=== PATIENT | male | born 1960 | race Caucasian/White ===

== ENCOUNTER 2017-12-02 07:30 | Day surgery (SDC) | payer OTHER ==
[2017-12-01 14:29] LABS: BASOPHILS 0.5 % (0-2); EOSINOPHILS 4.5 % (0-7); HEMATOCRIT 39.4 % (42.0-54.0); HEMOGLOBIN 13.1 g/dL (13.5-17.5); IMMATURE GRANULOCYTES 0.5 % (0-5); LYMPHOCYTES 34.3 % (15-50); MCH 31.5 pg (26.0-34.0); MCHC 33.2 g/dL (31.0-37.0); MCV 94.7 fL (80.0-100.0); MEAN PLATELET VOLUME 9.7 fL (7.4-10.4); MONOCYTES 7.1 % (2-11); NEUTROPHILS 53.1 % (40-80); PLATELET COUNT 139 10x3/uL (130-400); RBC 4.16 10x6/uL (4.20-6.10); RDW 15.1 % (11.5-14.5); WBC 9.4 10x3/uL (4.8-10.8)
[2017-12-01 14:41] LABS: APTT 29.9 SECONDS (22.8-39.4); INR 1.46 (0.85-1.17); PROTIME 17.3 SECONDS (11.6-15.0)
[2017-12-01 15:02] LABS: ANION GAP 15.6 mmol/L (8-16); CALCIUM 7.8 mg/dL (8.5-10.1); CARBON DIOXIDE 25.4 mmol/L (21.0-32.0); CREATININE - SERUM 5.6 mg/dL (0.6-1.3)
[~2017-12-02] VITALS: Ht 193 cm; Wt 171.9 kg
--- NOTE | ~2017-12-02 | OP ---
PATIENT NAME: CAYDEN RILEY MEDICAL RECORD: [id number] :60 LOCATION:D.[facility] ADMISSION DATE: SURGEON: AZUL WORLEY MD DATE OF OPERATION: 12/02/2017 REFERRING PHYSICIAN: Livan Ramos MD PREOPERATIVE DIAGNOSIS: Chronic kidney disease V. POSTOPERATIVE DIAGNOSIS: Chronic kidney disease V. OPERATION PERFORMED: Creation of a left distal brachial artery to basilic vein John type AV fistula with plans for a delayed translocation procedure. SURGEON: Azul Worley MD ANESTHESIA: Regional nerve block plus general endotracheal anesthesia per REAL ESTATE TRANSACTION MANAGER. PREOPERATIVE NOTE: Mr. Riley is a 56-year-old white male with chronic kidney disease, who is anticipated to require dialysis fairly soon. Dr. Ramos referred him to me for access. He has a good basilic vein in his left arm and I am anticipating a brachiobasilic AV fistula. Under regional block as well as general anesthesia, the patient was placed in supine position and prepped and draped in sterile manner. The REAL ESTATE TRANSACTION MANAGER administered general anesthesia in addition to the regional block because of the patient's obesity and also uncertainty as to the efficacy of the block. I then applied nitroglycerin ointment to the arm and forearm, and applied a Dinosaur drain as a proximal venous tourniquet. I examined him then with ultrasound and confirmed that the basilic vein was a very attractive vessel to use for this conduit. I then made an incision directly over it in the proximal forearm and exposed the vein and exposed the distal brachial artery at its trifurcation. The vessels were controlled with atraumatic vascular clamps and Silastic loops. The vein was ligated and divided distally and its deep communicating branch also was ligated and divided. Ligatures of 3-0 Vicryl and a few small Hemoclips were utilized. The vein was beveled and prepared for anastomosis and flushed with heparinized saline. The artery was occluded with the Silastic loops and the very distal brachial artery just above the trifurcation was opened for a distance of about 7-mm and the artery was flushed proximally and distally with heparinized saline. The end of vein was then anastomosed to side of artery with running 7-0 Prolene, and when completed the sutures and clamps were released and excellent flow immediately was established within the fistula, and after a period of observation with some dry gauze and the use of fibrillar hemostatic material, the suture line was hemostatic. The patient was examined at that point with Doppler and it was very difficult to hear flow in the radial artery or ulnar artery at the wrist. At this time, his blood pressure was 110 or less, systolic, and I, at that point, asked the can sealer to go ahead and awaken and extubate the patient, which was done and his pressure did come up as expected and he did develop a pulsatile Doppler flow in the radial artery at the wrist with and without occlusion of the fistula. Also, noted was that he maintained very good rapid capillary refill throughout the procedure in the hand. The wound was closed without the use of a drain approximating subcutaneous tissues with interrupted 3-0 Vicryl and skin was closed with running intracuticular 4-0 Monocryl and Dermabond glue. The OPERATIVE REPORT [id number] CAYDEN RILEY incision was dressed with Maxorb Ag, Tegaderm, and Cavilon skin prep and the patient was then taken to the recovery room. Blood loss was about 10 cc and certainly was unreplaced. All sponges, instruments and needles were accounted for. No drain was used and no surgical specimen was submitted for histopathology. PLAN: The patient will go home today and resume his usual diet and home medications including his warfarin. He is to resume the warfarin at his usual daily dose. He will come back to see me in my office in 2 weeks, and at that time I plan to remove his operative dressing. He can leave the dressing intact until that time and shower and wash over with soap and water as needed. Should the dressing become wet or dirty or bloody or if it is draining fluid from under the plastic, certainly it can be removed by the patient and family. The incision should at that time be cleansed gently with soap and water and then redressed with clean, dry gauze. He is given a prescription for [place] 14 tablets 5 mg/325 mg, he is to take 1 or 2 p.o. every 4 hours p.r.n. pain, which is more severe than might be handled by a plain Tylenol. I will plan for the patient to be returned to the operating room in the next 2 to 3 weeks for translocation of the basilic vein. TRANSINT:[id number] Voice Confirmation ID: [id number] DOCUMENT ID: [id number] AZUL WORLEY MD at 1410 CC: LIVAN RAMOS [id number] DICTATION DATE: 12/02/17 1152 PHYSICAL THERAPY RESIDENT: 12/02/17 2242 [facility] 12/02/17 [place] [id number] [place] [id number]
[~2017-12-02 07:30] MED LIST: CELEXA40 MG PO; CIPRO500 MG PO; COUMADIN5 MG PO; METOPROLOL TAR100 M1 PO
[2017-12-02 08:04] VITALS: Ht 193 cm; Wt 171.9 kg
[2017-12-02] MEDS ORDERED: HYDROCODON-ACE1 EAC7 PO (11:32)
== END 2017-12-02 13:20 | disposition home or self-care (01) ==
LOC: D.OPS 07:30
PROVIDERS: Surgery
DX: I13.2 Hypertensive heart and chronic kidney disease with heart failure and with stage 5 chronic kidney disease, or end stage renal disease (principal); N18.6 End stage renal disease; I50.9 Heart failure, unspecified; I48.91 Unspecified atrial fibrillation; G47.30 Sleep apnea, unspecified; E66.01 Morbid (severe) obesity due to excess calories; Z68.42 Body mass index [BMI] 45.0-49.9, adult; Z01.812 Encounter for preprocedural laboratory examination

== ENCOUNTER 2018-01-06 06:00 | Day surgery (SDC) | payer OTHER ==
[2018-01-05 15:37] LABS: BASOPHILS 0.4 % (0-2); EOSINOPHILS 2.1 % (0-7); HEMATOCRIT 37.1 % (42.0-54.0); IMMATURE GRANULOCYTES 0.4 % (0-5); LYMPHOCYTES 32.4 % (15-50); MCH 31.7 pg (26.0-34.0); MCHC 32.3 g/dL (31.0-37.0); MCV 97.9 fL (80.0-100.0); MEAN PLATELET VOLUME 10.5 fL (7.4-10.4); MONOCYTES 5.3 % (2-11); NEUTROPHILS 59.4 % (40-80); PLATELET COUNT 138 10x3/uL (130-400); RBC 3.79 10x6/uL (4.20-6.10); RDW 16.8 % (11.5-14.5); WBC 9.7 10x3/uL (4.8-10.8)
[2018-01-05 16:07] LABS: ANION GAP 16.6 mmol/L (8-16); CARBON DIOXIDE 22.1 mmol/L (21.0-32.0); CREATININE - SERUM 5.4 mg/dL (0.6-1.3); POTASSIUM - SERUM 4.7 mmol/L (3.5-5.1)
[2018-01-05 16:19] LABS: APTT 29.1 SECONDS (22.8-39.4); INR 1.45 (0.85-1.17); PROTIME 17.1 SECONDS (11.6-15.0)
[~2018-01-06] VITALS: Ht 193 cm; Wt 171.9 kg
--- NOTE | ~2018-01-06 | OP ---
PATIENT NAME: CAYDEN RILEY MEDICAL RECORD: [id number] :60 LOCATION:[facility] ADMISSION DATE: SURGEON: AZUL WORLEY MD DATE OF OPERATION: 01/06/2018 PREOPERATIVE DIAGNOSIS: Chronic kidney disease V. REFERRING PHYSICIAN: Livan Calrisle MD OPERATION PERFORMED: Second stage construction of a left brachial artery to translocated basilic vein AV fistula. SURGEON: Azul Worley MD ANESTHESIA: General with LMA per DINING ROOM TABLES SET UP ATTENDANT. PREOPERATIVE NOTE: Mr. Riley is a very nice 57-year-old white male patient with worsening renal disease and is thought to soon require dialysis. He had a John type fistula created between the brachial artery basilic vein several weeks ago and as planned. Then, he has returned to the operating room now to construct a translocated basilic fistula. DESCRIPTION OF PROCEDURE: Under general anesthesia, the patient was prepped and draped in sterile manner. He was examined first with Duplex ultrasound and I found the basilic vein to be quite large and there were very few other arterialized veins or tributaries. I made an incision on the medial aspect of the arm from the axilla to the previous incision in the antecubital space. I exposed the basilic vein and dissected it and freed it from the surrounding tissues and divided tributaries between Vicryl ties and clips all the way from the arterial anastomosis at the antecubital level to the axilla. The vein was occluded proximally with a vascular clamp and the vein distally just proximal to the arterial anastomosis was occluded with a vascular clamp. The vein was marked with a surgical marker to help with orientation of the graft and the vein was divided and bevelled. It was then flushed with heparinized saline. I made a tunnel on the anterior aspect of the arm with an Impra tunneler and used a Hank tunneler. Then, the second part of this maneuver and pulled the vein through a tunnel and back to the antecubital space without twisting. The vein was then anastomosed again end-to-end. This was done with running 7-0 Prolene and when completed the occluding loops and clamps were released and excellent flow was established in the fistula. The anastomosis was not stenosed or pursestringed, and there was no bleeding. The wound was irrigated with Ancef and gentamycin and the vein was treated intermittently with papaverine. A 0.25% Marcaine without epinephrine was infiltrated into the subcutaneous tissues. The patient had had an organized seroma or lymphocele in the antecubital space. When that was opened, it was drained of about 10 cc of clear fluid. When I drained this area and the distal half of the upper arm incision with a 10-mm flat fluted closed suction drain brought out through a stab incision in the forearm. The arm wound was closed with interrupted inverted 3-0 Vicryl and running intracuticular 4-0 Monocryl and Dermabond glue. It was dressed with Maxorb Ag, Tegaderm, and Cavilon skin prep. The drain was dressed with chlorhexidine-containing Biopatch and further sterile dry dressings over that. The patient was then awakened and taken to the recovery room in good condition with good fistula function. Blood loss was about 5 cc, none replaced. All sponges, instruments and needles OPERATIVE REPORT [id number] CAYDEN RILEY were accounted for. No drain. Probably one drain was used as I described. No surgical specimen was submitted for histopathology. PLAN: Mr. Riley will go home today and I will plan to see him back in my office later next week or early the following week. Home Health referral was made to help with wound care and THAD drain care in particular. He will continue all the same medications. He already has pain medication at home and needs no more. He will resume his Coumadin at the same daily dose beginning on Tuesday. TRANSINT:[id number] Voice Confirmation ID: [id number] DOCUMENT ID: [id number] AZUL WORLEY MD at 1451 CC: [id number] DICTATION DATE: 01/06/18 1132 COMMUNITY SPECIALIST: 01/06/18 1210 [facility] 01/06/18 [place] [id number] [place] [id number]
[~2018-01-06 06:00] MED LIST changes: +HYDROCODON-ACE1 EAC7 PO
[2018-01-06 06:39] VITALS: Ht 193 cm; Wt 171.9 kg
== END 2018-01-06 13:30 | disposition home or self-care (01) ==
LOC: D.OPS 06:00
PROVIDERS: Surgery
DX: I13.2 Hypertensive heart and chronic kidney disease with heart failure and with stage 5 chronic kidney disease, or end stage renal disease (principal); N18.5 Chronic kidney disease, stage 5; I50.9 Heart failure, unspecified; I48.91 Unspecified atrial fibrillation; Z01.812 Encounter for preprocedural laboratory examination

== ENCOUNTER 2018-02-03 06:30 | Observation (INO) | payer OTHER ==
[~2018-02-03] VITALS: Ht 1818.6 cm; Wt 172.7 kg
--- NOTE | ~2018-02-03 | OP ---
PATIENT NAME: CAYDEN RILEY MEDICAL RECORD: [id number] :60 LOCATION:D.M2 D.2127 ADMISSION DATE:02/05/18 SURGEON: AZUL WORLEY MD DATE OF OPERATION: 02/03/2018 REFERRED BY: Livan Carlisle MD OPERATION PERFORMED: Laparoscopic implantation of a peritoneal dialysis catheter with subcutaneous extension exiting in the right upper quadrant and a laparoscopic mesh repair of recurrent umbilical ventral hernia. Repair performed with a Ventralight ST 4.5 inch diameter circular mesh with Echo PS positioning system and Bard AbsorbaTack fixation, and also the third part of the operation was ray amputation of the 4th left toe at the metatarsophalangeal joint. SURGEON: Azul Worley MD ANESTHESIA: General endotracheal per SCIENTIFIC RESEARCH ASSOCIATE. PREOPERATIVE NOTE: Mr. Riley is a 57-year-old white male patient from [place]. He is morbidly obese with a gigantic abdomen and has worsening symptoms of onset of uremia. He has known chronic kidney disease and he has had a fistula constructed in his left arm, but it has not yet been utilized for dialysis. He does not have a dialysis catheter at this point. Dr. Carlisle has referred him back to me for laparoscopic implantation of a PD catheter. Also, the patient has a chronically infected left fourth toe, thought to have osteomyelitis by x-ray findings and that is to be amputated today as well. DESCRIPTION OF PROCEDURE: Under general endotracheal anesthesia, the patient was placed on the operating table in supine position, and the abdomen and the left foot was prepped and draped in a sterile manner. On physical examination, the patient has extensive hyperpigmentation and scarring in the umbilicus from surgical repair of a large umbilical hernia done last year. By history, at least no prosthetic mesh was used and that repair. On physical examination; however, I do not, at least at this time detect a recurrent hernia. I entered the left upper quadrant of the abdomen with a 5-mm diameter port and later exchanged it for 10-mm port. The operation was done throughout with a 5-mm diameter laparoscope. Both the 0 degree and 30 degree angled scopes were used. I chose to use some Merit peritoneal dialysis catheter system. I used external landmarks to estimate a 0.4 incision on the abdominal wall to the right of the midline. In the right lower quadrant, I made an incision and carried that down to the anterior rectus sheath and then inserted a needle and guidewire through the rectus complex into the abdomen. I tried to keep the needle and guidewire in a retroperitoneal tunnel as far as possible in order to help direct the catheter into the pelvis. A 16-Irish introducer was placed and then through that I inserted the business end of the Merit dialysis coil catheter. The single Dacron felt cuff was placed through the rectus fascia into the body of the rectus muscle and a pursestring suture of 0 Vicryl was placed in the anterior rectus sheath to hold it there. I made another incision to the right of the midline above the umbilicus and made a subcutaneous tunnel just anterior to the rectus connecting the 2 incisions. I made measurements and then cut the catheters and joined them together with a titanium connector and pulled them through the subcutaneous tunnel and got a perfect fit. The catheter was finally placed through a subcutaneous tunnel to the proposed exit site in the right OPERATIVE REPORT [id number] CAYDEN RILEY [facility]. This left the second Dacron felt cuff in the subcutaneous tissues about 2 cm or 3 cm from the exit site. The catheter was accessed and flushed, noted to flush easily. About 300 mL of saline was flushed into the abdomen through it and then aspirated, and the catheter functioned quite well. Visually it was resting nicely in the pelvis. The patient did have a small recurrent umbilical incisional hernia about the size of a quarter with omentum adherent to its undersurface. These adhesions were taken down bluntly and fairly easily. Having placed an additional 5-mm port in the left lower quadrant. Later during the procedure, I placed 2 additional ports on the right side. I inserted a 4.5 inch diameter circular Ventralight ST mesh with Echo PS positioning system. This was inserted through the 10-mm sheath in the left upper quadrant into the abdomen. The plastic tube was picked up with a Robert-Alexander suture passer, which was introduced through the anterior abdominal wall through the old hernia repair and pulled up against the anterior abdominal wall. The patch was then held in place with AbsorbaTack and the balloon mechanism was removed. The abdomen was irrigated with saline and the hernia repair thought to be satisfactory and catheter placement and function is satisfactory. The ports were removed after allowing the insufflated carbon dioxide to escape. The wounds were irrigated with saline and closed with interrupted 3-0 Vicryl and running intracuticular 4-0 Monocryl. A sterile dressing with chlorhexidine patch was placed over the dialysis catheter coiled in the right upper quadrant. I next made a tennis racquet shaped incision around the base of the left 4th toe and carried the incision down to the bone of the proximal phalanx. This was divided with a bone cutter and a rongeur was then used to remove the rest of the proximal phalanx, exposing the articular surface of the metatarsal bone. Bleeding was satisfactory from the wound. The wound was treated with electrocautery and infiltrated with 0.25% Marcaine without epinephrine and the soft tissues approximated with interrupted 4-0 Prolene sutures. Sterile dressings were applied to the foot and the abdominal incision sealed with glue were dressed with Maxorb Ag, Tegaderm, and Cavilon skin prep. The patient was then awakened and taken to the recovery room in stable condition. Blood loss during the operation was no more than 10 cc. All sponges, instruments and needles were accounted for. No drain was used. Surgical specimen consisted of the amputated left 4th toe. TRANSINT:[id number] Voice Confirmation ID: [id number] DOCUMENT ID: [id number] AZUL WORLEY MD at 1054 CC: [id number] DICTATION DATE: 02/03/18 1345 LICENSED DIRECT ENTRY MIDWIFE: 02/03/18 1443 [facility] 02/05/18 [place] [id number] [place] [address]
[2018-02-03 06:50] LABS: BASOPHILS 0.4 % (0-2); EOSINOPHILS 2.4 % (0-7); HEMATOCRIT 37.2 % (42.0-54.0); HEMOGLOBIN 11.6 g/dL (13.5-17.5); IMMATURE GRANULOCYTES 0.3 % (0-5); LYMPHOCYTES 36.2 % (15-50); MCH 30.8 pg (26.0-34.0); MCHC 31.2 g/dL (31.0-37.0); MCV 98.7 fL (80.0-100.0); MEAN PLATELET VOLUME 9.6 fL (7.4-10.4); MONOCYTES 7.4 % (2-11); NEUTROPHILS 53.3 % (40-80); PLATELET COUNT 153 10x3/uL (130-400); RBC 3.77 10x6/uL (4.20-6.10); RDW 16.1 % (11.5-14.5); WBC 7.5 10x3/uL (4.8-10.8)
[2018-02-03 06:55] LABS: ANION GAP 15.4 mmol/L (8-16); CALCIUM 7.8 mg/dL (8.5-10.1); CARBON DIOXIDE 24.2 mmol/L (21.0-32.0); CREATININE - SERUM 5.8 mg/dL (0.6-1.3); POTASSIUM - SERUM 4.6 mmol/L (3.5-5.1)
[2018-02-03 07:02] LABS: APTT 30.7 SECONDS (22.8-39.4); INR 1.48 (0.85-1.17); PROTIME 17.4 SECONDS (11.6-15.0)
[2018-02-03 07:57] VITALS: BP 108/64
[2018-02-03] MEDS ORDERED: AMOXICILLIN500 M1 PO (07:57)
[2018-02-03] MEDS ORDERED: LASIX40 MG PO (08:00)
[2018-02-03 14:31] VITALS: BP 123/76
[2018-02-03 16:04] VITALS: BP 125/78
[2018-02-03 17:21] LABS: BASOPHILS 0.3 % (0-2); EOSINOPHILS 0.7 % (0-7); HEMATOCRIT 35.5 % (42.0-54.0); HEMOGLOBIN 11.1 g/dL (13.5-17.5); IMMATURE GRANULOCYTES 0.4 % (0-5); LYMPHOCYTES 19.4 % (15-50); MCH 31.1 pg (26.0-34.0); MCHC 31.3 g/dL (31.0-37.0); MCV 99.4 fL (80.0-100.0); MEAN PLATELET VOLUME 10.4 fL (7.4-10.4); MONOCYTES 5.3 % (2-11); NEUTROPHILS 73.9 % (40-80); PLATELET COUNT 143 10x3/uL (130-400); RBC 3.57 10x6/uL (4.20-6.10); WBC 7.4 10x3/uL (4.8-10.8)
[2018-02-03 17:41] LABS: ALBUMIN 3.5 g/dL (3.4-5.0); ANION GAP 14.3 mmol/L (8-16); BILIRUBIN - TOTAL 0.69 mg/dL (0.2-1.3); CALCIUM 7.3 mg/dL (8.5-10.1); CARBON DIOXIDE 24.7 mmol/L (21.0-32.0); CREATININE - SERUM 5.4 mg/dL (0.6-1.3); PROTEIN - SERUM 6.9 g/dL (6.4-8.2)
[2018-02-03 17:52] LABS: APTT 29.5 SECONDS (22.8-39.4); INR 1.53 (0.85-1.17); PROTIME 17.8 SECONDS (11.6-15.0)
[2018-02-03 21:56] VITALS: BP 135/70
[2018-02-03 22:42] VITALS: BP 123/76
[2018-02-04 00:45] VITALS: BP 141/97
[2018-02-04 04:16] VITALS: BP 137/70
[2018-02-04 05:00] LABS: BASOPHILS 0.1 % (0-2); EOSINOPHILS 1.2 % (0-7); HEMATOCRIT 34.3 % (42.0-54.0); HEMOGLOBIN 10.3 g/dL (13.5-17.5); IMMATURE GRANULOCYTES 0.3 % (0-5); LYMPHOCYTES 25.8 % (15-50); MCH 30.3 pg (26.0-34.0); MCV 100.9 fL (80.0-100.0); MEAN PLATELET VOLUME 10.1 fL (7.4-10.4); MONOCYTES 9.5 % (2-11); NEUTROPHILS 63.1 % (40-80); PLATELET COUNT 135 10x3/uL (130-400); RDW 16.3 % (11.5-14.5); WBC 7.3 10x3/uL (4.8-10.8)
[2018-02-04 05:38] LABS: ANION GAP 15.5 mmol/L (8-16); CALCIUM 7.8 mg/dL (8.5-10.1); CARBON DIOXIDE 22.3 mmol/L (21.0-32.0); CREATININE - SERUM 5.6 mg/dL (0.6-1.3); MAGNESIUM - SERUM 1.9 mg/dL (1.8-2.4); PHOSPHOROUS 6.5 mg/dL (2.5-4.9); POTASSIUM - SERUM 4.8 mmol/L (3.5-5.1)
[2018-02-04 07:47] VITALS: BP 138/80
[2018-02-04 11:32] VITALS: BP 128/62
[2018-02-04 12:46] VITALS: Ht 1818.6 cm; Wt 172.7 kg
[2018-02-04 15:34] VITALS: BP 107/64
[2018-02-04 20:46] VITALS: BP 141/76
[2018-02-05 00:30] VITALS: BP 119/87
[2018-02-05 04:30] VITALS: BP 147/84
[2018-02-05 05:45] LABS: BASOPHILS 0.1 % (0-2); EOSINOPHILS 1.9 % (0-7); HEMATOCRIT 32.4 % (42.0-54.0); IMMATURE GRANULOCYTES 0.1 % (0-5); LYMPHOCYTES 27.4 % (15-50); MCH 30.6 pg (26.0-34.0); MCHC 30.9 g/dL (31.0-37.0); MCV 99.1 fL (80.0-100.0); MEAN PLATELET VOLUME 10.2 fL (7.4-10.4); MONOCYTES 8.7 % (2-11); NEUTROPHILS 61.8 % (40-80); PLATELET COUNT 111 10x3/uL (130-400); RBC 3.27 10x6/uL (4.20-6.10); WBC 6.7 10x3/uL (4.8-10.8)
[2018-02-05 05:48] LABS: INR 1.35 (0.85-1.17); PROTIME 16.2 SECONDS (11.6-15.0)
[2018-02-05 05:56] LABS: ANION GAP 15.3 mmol/L (8-16); CALCIUM 7.8 mg/dL (8.5-10.1); CARBON DIOXIDE 22.3 mmol/L (21.0-32.0); CREATININE - SERUM 5.6 mg/dL (0.6-1.3); POTASSIUM - SERUM 4.6 mmol/L (3.5-5.1)
[2018-02-05 08:08] VITALS: BP 128/71
[2018-02-05] MEDS ORDERED: SODIUM BICARBO650 MG PO (10:56)
[2018-02-05 11:25] VITALS: BP 128/81
[2018-02-05] MEDS ORDERED: FLOMAX0.4 MG PO (11:29)
== END 2018-02-05 13:15 | disposition home or self-care (01) ==
LOC: OBSVTIME → D.OPS 06:30 → D.M2 06:30 → D.OPS 10:00 → D.M2 12:48 → OBSVTIME 12:48 → D.M2 13:31 → D.OPS 13:31 → D.M2 02-05 11:29 → D.OPS 02-05 11:29 → D.M2 02-05 11:31 → OBSVTIME 02-05 11:32 → D.M2 02-05 13:15
PROVIDERS: Internal Medicine Pulmonary Disease; Surgery
DX: M86.172 Other acute osteomyelitis, left ankle and foot (principal); K43.9 Ventral hernia without obstruction or gangrene; I13.2 Hypertensive heart and chronic kidney disease with heart failure and with stage 5 chronic kidney disease, or end stage renal disease; I50.33 Acute on chronic diastolic (congestive) heart failure; N18.5 Chronic kidney disease, stage 5; J96.02 Acute respiratory failure with hypercapnia; J96.01 Acute respiratory failure with hypoxia; G47.33 Obstructive sleep apnea (adult) (pediatric); E87.2 Acidosis; I48.91 Unspecified atrial fibrillation; F32.9 Major depressive disorder, single episode, unspecified; D64.9 Anemia, unspecified; E66.9 Obesity, unspecified; Z68.30 Body mass index [BMI] 30.0-30.9, adult

== ENCOUNTER → 2018-08-08 05:20 | Day surgery (SDC) | payer OTHER, MEDICARE ==
[2018-08-07 17:12] LABS: BASOPHILS 0.2 % (0-2); EOSINOPHILS 4.9 % (0-7); HEMATOCRIT 30.3 % (42.0-54.0); HEMOGLOBIN 9.7 g/dL (13.5-17.5); IMMATURE GRANULOCYTES 0.5 % (0-5); LYMPHOCYTES 32.7 % (15-50); MCH 29.7 pg (26.0-34.0); MCV 92.7 fL (80.0-100.0); MEAN PLATELET VOLUME 9.3 fL (7.4-10.4); MONOCYTES 6.6 % (2-11); NEUTROPHILS 55.1 % (40-80); RBC 3.27 10x6/uL (4.20-6.10); RDW 15.8 % (11.5-14.5); WBC 9.2 10x3/uL (4.8-10.8)
[2018-08-07 17:14] LABS: PLATELET COUNT 169 10x3/uL (130-400)
[2018-08-07 17:18] LABS: INR 1.29 (0.85-1.17); PROTIME 15.5 SECONDS (11.6-15.0)
[2018-08-07 17:22] LABS: ANION GAP 16.1 mmol/L (8-16); CALCIUM 9.5 mg/dL (8.5-10.1); CARBON DIOXIDE 28.5 mmol/L (21.0-32.0); CREATININE - SERUM 6.3 mg/dL (0.6-1.3); POTASSIUM - SERUM 3.6 mmol/L (3.5-5.1)
[~2018-08-08] VITALS: Ht 193 cm; Wt 147.0 kg
--- NOTE | ~2018-08-08 | OP ---
PATIENT NAME: CAYDEN RILEY MEDICAL RECORD: [id number] :60 LOCATION:[facility] ADMISSION DATE: SURGEON: AZUL WORLEY MD DATE OF OPERATION: 08/08/2018 REFERRED BY: Livan Ramos MD PREOPERATIVE DIAGNOSIS: Peritoneal dialysis catheter dysfunction. ADDITIONAL DIAGNOSES: End-stage renal disease and dependence on renal dialysis and morbid obesity. POSTOPERATIVE DIAGNOSES: Peritoneal dialysis catheter dysfunction, bilateral indirect inguinal hernias. SURGEON: Azul Worley MD ANESTHESIA: General endotracheal per WEAVER AXMINSTER OPERATION PERFORMED: Laparoscopy with adhesiolysis and removal and replacement of PD catheter and subcutaneous extension. PREOPERATIVE NOTE: Mr. Riley is a very nice morbidly obese 57-year-old white male from [place]. He has end-stage renal disease. Unfortunately, has a functioning AV fistula in his left upper extremity and has had recent difficulties with his peritoneal dialysis catheter not functioning. I placed this catheter back in January of last year and it has worked until recently. I did a cathetergram on him at [facility] and found the catheter to be displaced into the right lower quadrant and it appeared to have an omental wrap. He is scheduled for laparoscopy and indicated procedures for that today. DESCRIPTION OF PROCEDURE: Under general endotracheal anesthesia in supine position, the patient was prepped and draped in a sterile manner. The abdomen was accessed through a small incision in the left upper quadrant with a 5-mm Optiview XL laparoscopic trocar and 5-mm 30-degree laparoscope. Pneumoperitoneum was established with carbon dioxide. During the procedure, I placed two additional 5-mm ports, one at the level of the umbilicus and the other in the left lower quadrant. On initial laparoscopic exam, I noted adhesions to the previously placed mesh repair of the umbilical hernia. These adhesions were subsequently lysed with harmonic bernice. The peritoneal dialysis catheter was found to be wrapped in small bowel and small bowel mesentery in the right lower quadrant and it was fortunately fairly easy to free with traction from this area and I found that it was just riding too high in the abdomen and not down deep in the pelvis and I felt that it needed to be removed and replaced. I also noted during this exam that the patient does have bilateral indirect inguinal hernias, which I had not diagnosed last summer. They are not symptomatic at this point. I then made an incision in the abdomen and exposed the previously placed catheter near its entry site and with electrocautery I was able to dissect the Dacron felt cuff free and removed the catheter intact with gentle traction. I was then able to pull the catheter down and exposed the titanium connector and then with continued traction I was able to simply pull the entire catheter out through that incision. The patient's superficial Dacron felt cuff had been shaved off several weeks ago. I made another incision then just to the right of the midline in the upper abdomen and then prepared a tunnel just anterior to the rectus sheath between the inferior and superior incisions. OPERATIVE REPORT [id number] CAYDEN RILEY I measured the length and determined that approximately 20 cm of catheter length were needed. I used a needle then, placed through the anterior abdominal wall, more inferiorly towards the pelvis and laparoscopically directed this needle in an anterior extraperitoneal course down towards the midline and closer into the pelvis. A peel-away introducer was placed and the Merit coiled catheter having been rinsed in saline and air expelled from the Dacron felt cuff, that catheter was inserted. It was turned with the stripe down home and it reached nicely well down into the pelvis with the Dacron felt cuff buried in the rectus just below the anterior rectus sheath. The pursestring suture of 0 Vicryl was placed to hold it in position and prevent leaks. The catheter was flushed and flushed easily. That catheter was then shortened and placed on the titanium connector. The second catheter was shortened and placed on the titanium connector and ties of 2-0 Prolene applied. The catheter was then pulled through the subcutaneous tunnel to the upper abdomen and the catheter was placed out laterally and a new tunnel to a new exit site. This left the superficial Dacron felt cuff, perhaps 4 cm from the skin exit site and I thought this was in good position. The catheter was then flushed with saline and aspirated. It was noted that the catheter would flush and drain nicely. The catheter was then heparin-locked, clamped and capped and the wounds irrigated with Ancef/gentamicin solution and infiltrated with 0.25% Marcaine without epinephrine. Wound closure was then performed with interrupted inverted 3-0 Vicryl and running intracuticular 4-0 Monocryl and Dermabond glue. The laparoscopic ports were removed after allowing insufflated carbon dioxide to escape. These sites were closed with interrupted inverted 3-0 Vicryl for skin and Dermabond glue and all the incisions were dressed with Maxorb Ag, Tegaderm, and Cavilon skin prep. A Biopatch was applied on the PD catheter at the exit site and further sterile dry dressings overall. He was then awakened and extubated and taken to the recovery room in stable condition. Blood loss throughout was insignificant and unreplaced. Sponges, instruments, and needles were accounted for. No drain was used and no surgical specimen was submitted for histopathology. PLAN: The patient is to have his catheter flushed hopefully within about 72 hours that is at least this week and I have communicated with Dalia Goldsmith RN and she has told me she will see that it is done. I believe the patient will be able to begin PD exchanges in 2 weeks. I need to see him back in my office next week to check his incisions and I will have him back on , a week from this coming . Meanwhile, he is to continue all of the same medications and dialysis schedule and activities as tolerated. TRANSINT:[id number] Voice Confirmation ID: [id number] DOCUMENT ID: [id number] cc: [facility] AZUL WORLEY MD CC: LIVAN RAMOS and [facility] [place] [id number] DICTATION DATE: 08/08/18 1528 COLOR CORRECTOR: 08/08/18 1646 [facility] 08/08/[address] [facility] [address] [place] [address]
[~2018-08-08 05:20] MED LIST changes: +AMOXICILLIN500 M1 PO; +FLOMAX0.4 MG PO; +LASIX40 MG PO; -METOPROLOL TAR100 M1 PO; +METOPROLOL TART25 MG PO; +SODIUM BICARBO650 MG PO; +ULORIC40 MG PO; +[UNRECOGNIZED DRUG - OTHER] PO
[2018-08-08 06:32] VITALS: Ht 193 cm; Wt 147.0 kg
--- NOTE | 2018-08-08 13:39 | NUR ---
1250 DR. WORLEY SAID TO RELEASE HOME.
== END | disposition home or self-care (01) ==
LOC: D.OPS 05:20
PROVIDERS: Surgery; ATTEND Internal Medicine Nephrology
DX: T85.621A Displacement of intraperitoneal dialysis catheter, initial encounter (principal); K40.20 Bilateral inguinal hernia, without obstruction or gangrene, not specified as recurrent; N18.6 End stage renal disease; Z99.2 Dependence on renal dialysis; E66.01 Morbid (severe) obesity due to excess calories; Z01.812 Encounter for preprocedural laboratory examination

== ENCOUNTER 2018-10-31 07:59 | Outpatient (CLI) | payer OTHER, MEDICARE ==
[~2018-10-31] VITALS: Ht 193 cm; Wt 142.9 kg
[2018-10-31 08:42] LABS: HEMOGLOBIN 10.8 g/dL (13.5-17.5); LYMPHOCYTES 34.7 % (15-50); MCH 30.9 pg (26.0-34.0); MCHC 33.8 g/dL (31.0-37.0); MCV 91.4 fL (80.0-100.0); MEAN PLATELET VOLUME 9.2 fL (7.4-10.4); NEUTROPHILS 49.7 % (40-80); PLATELET COUNT 191 10x3/uL (130-400); RDW 16.2 % (11.5-14.5); WBC 8.1 10x3/uL (4.8-10.8)
[2018-10-31 08:44] LABS: INR 1.39 (0.85-1.17); PROTIME 16.5 SECONDS (11.6-15.0)
[2018-10-31 08:45] LABS: ANION GAP 15.1 mmol/L (8-16); CALCIUM 11.2 mg/dL (8.5-10.1); CARBON DIOXIDE 29.4 mmol/L (21.0-32.0); CREATININE - SERUM 6.3 mg/dL (0.6-1.3); POTASSIUM - SERUM 3.5 mmol/L (3.5-5.1)
[2018-10-31] MEDS ORDERED: EFFER-K 25 MEQ25 MEQ PO (10:55)
[2018-10-31] MEDS ORDERED: CLEOCIN HCL300 MG PO (10:56)
[2018-10-31 11:12] VITALS: BP 115/71; Ht 193 cm; Wt 142.9 kg
--- NOTE | 2018-10-31 11:50 | NUR ---
DR. WORLEY CANCELLED SURGERY, RESCHEDULED FOR 11-07-18
== END 2018-10-31 11:50 | disposition home or self-care (01) ==
LOC: D.OPS 07:59 → EDSTATUS 12:00 → D.OPS 12:00
PROVIDERS: Surgery; ATTEND Internal Medicine Nephrology
DX: N18.5 Chronic kidney disease, stage 5 (principal)

== ENCOUNTER 2018-11-07 07:40 | Inpatient (IN) | payer OTHER ==
[~2018-11-07] VITALS: Ht 193 cm; Wt 143.6 kg
--- NOTE | ~2018-11-07 | OP ---
PATIENT NAME: CAYDEN RILEY MEDICAL RECORD: [id number] :60 LOCATION:D.M2 D.2105 ADMISSION DATE:11/07/18 SURGEON: AZUL WORLEY MD DATE OF OPERATION: 11/07/2018 PREOPERATIVE DIAGNOSIS: Chronically infected peritoneal dialysis catheter. POSTOPERATIVE DIAGNOSIS: Chronically infected peritoneal dialysis catheter with severe tunnel infection and without peritonitis. OPERATION PERFORMED: Removal of peritoneal dialysis catheter. REFERRING PHYSICIAN: Livan Ramos MD ANESTHESIA: General per OIL SEPARATOR. PREOPERATIVE NOTE: Mr. Riley is a very nice 57-year-old white male with end-stage renal disease, presently dialyzing successfully with a left arm hemodialysis fistula. He has wanted to do home peritoneal dialysis and I implanted a peritoneal dialysis catheter with a subcutaneous extension and to reach an exit site in his right upper quadrant. Mr. Riley is a severely morbidly obese and it was necessary to use an extension catheter to reach an area where he will be able to take care of it. That catheter only worked for a couple of weeks and he has been having drainage from the catheter tract and leaking some peritoneal dialysate. He recently had dehiscence of one of his incisions with exposure of the underlying catheter and he is brought to the operating room now to remove that catheter. I have told him that in the future, it is probably will be feasible for him to have another catheter implanted, but that I think it is important now just to get this 1 out and get his infection cleared. Under anesthesia in supine position, the patient was prepped and draped in sterile manner. I reopened the 2 incisions in the right paramedian, right lower quadrant and right upper quadrant and exposed the underlying catheters. I transected the catheter externally and then was able to pull it back through the cuff, the Dacron felt cuff was not at all fixed. The catheter tract or tunnel was full of infected granulation tissue. I reopened the lower incision and pulled the catheter down into it. I identified the titanium connector and the tube attached catheter segments and saw no evidence of any disconnection or leak at that point. I then dissected inferiorly and down to the anterior rectus sheath and mobilized the deep cuff, which was involved in this infectious process and freed it and then removed the internal portion of the catheter. The entire tract down to the deep cuff was grossly infected. I debrided the granulation and chunky tissue aggressively both with knife and scissors and curette. I especially curetted the tunnel, the paramedian tunnel between the upper and lower incisions. I irrigated the wound thoroughly with saline and saline containing Ancef and gentamicin. I am concerned that the patient might develop a hernia at the site where the catheter passed through the anterior abdominal wall and I did not close the anterior rectus sheath fascia. The wound was simply too infected. Swabs were taken for culture and sensitivity and tissue sent for culture and sensitivity. I noted that the material smelled of yeast and I am concerned that this was a Elysia infection. When hemostasis was obtained, the wound was dressed with a wound VAC dressing with black foam attached to continuous 125 mm of negative pressure and the OPERATIVE REPORT [id number] REKHACAYDEN SANDRANE patient was awakened and taken to the recovery room. Blood loss during the operation was fairly minimal, less than 100 cc. possibly is low as 10 cc. None was replaced. Sponges, instruments, and needles were accounted for and no drain was used other than the VAC black foam. PLAN: The patient will be admitted to inpatient status on med 2 and to be continued on antibiotics. I am going to go ahead and start him empirically on antifungal agent this evening awaiting cultures. He will probably be going home with a wound VAC and so we will get case management involved early in this process, anticipating his discharge probably around the first of next week. TRANSINT:[id number] Voice Confirmation ID: [id number] DOCUMENT ID: [id number] AZUL WORLEY MD CC: LIVAN RAMOS [id number] DICTATION DATE: 11/09/18 171 REHABILITATION CONSTRUCTION SPECIALIST: 11/09/18 2341 ADM IN [facility] [address] [place] [address]
[~2018-11-07 07:40] MED LIST changes: +CLEOCIN HCL300 MG PO; +EFFER-K 25 MEQ25 MEQ PO
[2018-11-07 08:09] LABS: BASOPHILS 0.5 % (0-2); HEMATOCRIT 31.8 % (42.0-54.0); HEMOGLOBIN 10.5 g/dL (13.5-17.5); IMMATURE GRANULOCYTES 0.3 % (0-5); MCH 30.4 pg (26.0-34.0); MCV 92.2 fL (80.0-100.0); MEAN PLATELET VOLUME 9.1 fL (7.4-10.4); MONOCYTES 9.4 % (2-11); NEUTROPHILS 52.8 % (40-80); PLATELET COUNT 157 10x3/uL (130-400); RBC 3.45 10x6/uL (4.20-6.10); WBC 8.8 10x3/uL (4.8-10.8)
[2018-11-07 08:19] LABS: ANION GAP 15.4 mmol/L (8-16); CALCIUM 11.8 mg/dL (8.5-10.1); CARBON DIOXIDE 27.4 mmol/L (21.0-32.0); CREATININE - SERUM 6.5 mg/dL (0.6-1.3); POTASSIUM - SERUM 3.8 mmol/L (3.5-5.1)
[2018-11-07 08:29] LABS: INR 1.15 (0.85-1.17); PROTIME 14.2 SECONDS (11.6-15.0)
[2018-11-07] MEDS ORDERED: ZOLOFT50 MG PO (08:35)
[2018-11-07 08:36] VITALS: BP 108/57; BMI 38.3
[2018-11-07 14:15] VITALS: BP 122/61; BMI 38.4
--- NOTE | 2018-11-07 14:15 | NUR ---
RECIEVED PT FROM OR. PT ALERT AND ORIENTED X3, ANSWERS ALL QUESTIONS. DENIES ANY NEEDS AT THIS TIME, WOUND VAC IN PLACE TO ABD WITH NO LEAKS NOTED. CALL LIGHT WITHIN REACH. WILL CONT TO FOLLOW POC
[2018-11-07 18:32] VITALS: BP 120/86
--- NOTE | 2018-11-07 19:10 | NUR ---
ASSESSED PT ABDOMEN. ABDOMEN APPEARS DISTENDED AND TIGHT. ACTIVE X4 QUADRANTS. INCISIONS ON PT ABDOMEN NON-TENDER. HEMOVAC WITH BLOODY DRAINAGE. PT DENIES ANY NEED FOR PAIN. LEFT 2ND AND THIRD TOE AMPUTEE. PT IN BED, REQUEST FOR HIS CPAP MACHINE TO BE TURNED ON. DENIES ANY FURTHER NEEDS AT THIS TIME. WILL CPOC.
--- NOTE | 2018-11-07 20:00 | NUR ---
ROUNDS COMPLETED. AAOX4, VSS. NO S/S OF RESP DISTRESS. PT LAYING IN BED. C/O SCD VALERI, STATES HE WANT TO TAKE IT OUT. SCD OUT AT THIS TIME. WOUND VAC PATENT, C/D/I. ASSIST PT TO PUT HIS CPAP ON. PT DENIES ANY FURTHER NEEDS AT THIS TIME. WILL CPOC.
[2018-11-07 21:24] VITALS: BP 126/59
[2018-11-08] VITALS: BP 137/77
[2018-11-08 04:00] VITALS: BP 115/61
[2018-11-08 07:56] VITALS: BP 122/73
--- NOTE | 2018-11-08 08:43 | NUR ---
MORNING ROUNDS MADE. PT LAYING IN BED RESTING. DENIES PAIN/ FURTHER NEEDS AT THIS TIME. A/O X 4. FALL PRECAUTIONS IN PLACE. WILL CTM.
--- NOTE | 2018-11-08 09:49 | MORECARE ---
CASE MANAGEMENT DISCHARGE SUMMARY PATIENT: CAYDEN DA SILVA UNIT: [id number] ADM DATE: 11/07/18 AGE: 57 : 60 SEX: M ROOM/BED: D.2105 AUTHOR: GABRIEL VILLAGOMEZ PHYSICIAN: REFERRING PHYSICIAN: LEE RAMOS MD DATE OF SERVICE: 11/08/18 Discharge Plan Patient Name: CAYDEN DA SILVA [facility] [facility] 1960 Planned Disposition: Home with Home Health Anticipated Discharge Date: Discharge Date: Expected LOS: Initial Reviewer: [email or web address] Initial Review Date: 11/08/2018 Generated: 11/08/18 10:49 am Patient Name: CAYDEN DA SILVA Page [phone] at 0949 All edits/amendments must be made on the electronic document DICTATION DATE: 11/08/18947 CPA TAX: RAMA 11/08/18947 RPT#: [id number] DC DATE: STATUS: ADM IN [facility] [address] [place] [address] END OF REPORT
--- NOTE | 2018-11-08 09:58 | MORECARE ---
CASE MANAGEMENT DISCHARGE SUMMARY PATIENT: CAYDEN DA SILVA UNIT: [id number] ADM DATE: 11/07/18 AGE: 57 : 60 SEX: M ROOM/BED: D.2105 AUTHOR: GABRIEL VILLAGOMEZ PHYSICIAN: REFERRING PHYSICIAN: LEE RAMOS MD DATE OF SERVICE: 11/08/18 Discharge Plan Patient Name: CAYDEN DA SILVA Facility: [facility]:[place] : 1960 Planned Disposition: Home with Home Health Anticipated Discharge Date: Discharge Date: Expected LOS: Initial Reviewer: [email or web address] Initial Review Date: 11/08/2018 Generated: 11/08/18 10:57 am DCPIA - Discharge Planning Initial Assessment Updated by [email or web address]: Juan Paredes on 11/08/18 9:49 am * Is the patient Alert and Oriented? Yes * How many steps to enter\exit or inside your home? * PCP [facility] * Pharmacy [facility] * Preadmission Environment Home with Family * ADLs Independent * Equipment CPAP Oxygen * Other Equipment HOME OXYGEN FROM [facility] [place] * List name and contact numbers for known caregivers / representatives who currently or will assist patient after discharge: GOKUL DA SILVA, SPOUSE, * Verbal permission to speak to the caregivers and representatives has been obtained from the patient. N/A * Community resources currently utilized Other * Please name any agencies selected above. OUTPATIENT DIALYSIS, [facility], 1530 HOURS, PT DRIVES SELF * Additional services required to return to the preadmission environment? Yes * Can the patient safely return to the preadmission environment? Yes * Has this patient been hospitalized within the prior 30 days at any hospital? No External Providers External Provider: [facility] [facility] Next Contact Date: 11/08/2018 Service Request Date: Service Type: Resolution: Reviewer: Comments: External Provider: SAMANTHA[facility] Next Contact Date: 11/08/2018 Service Request Date: Service Type: Resolution: Reviewer: Comments: Last DP export: 11/08/18 8:49 am Patient Name: CAYDEN DA SILVA Page [phone] at 0958 All edits/amendments must be made on the electronic document DICTATION DATE: 11/08/18956 EAR NOSE THROAT PHYSICIAN: RAMA 11/08/18956 RPT#: [id number] DC DATE: STATUS: ADM IN [facility] [address] [place] [address] END OF REPORT
--- NOTE | 2018-11-08 10:34 | NUR ---
PT STATES HE NEEDS TO HAVE A BM. URINAL AND BEDSIDE COMMODE PROVIDED FOR PT. PT ASSISTED ONTO BEDSIDE COMMODE BY . RESUSES TO HAVE MANIPULATIVE THERAPY SPECIALIST ASSISTED WITH RESTROOM ASSISTANCE. NO FURTHER CONCNERS AT THIS TIME. WILL CTM.
--- NOTE | 2018-11-08 11:18 | NUR ---
PT LAYING IN BED RESTING. VANC STARTED TO IV IN R HAND, PATENT, BETITO C/D/I. DENIES PAIN AT THIS TIME. PT COMFORTABLE AT THIS TIME. WILL CTM.
--- NOTE | 2018-11-08 11:51 | MORECARE ---
CASE MANAGEMENT DISCHARGE SUMMARY PATIENT: CAYDEN DA SILVA UNIT: [id number] ADM DATE: 11/07/18 AGE: 57 : 60 SEX: M ROOM/BED: D.9699 AUTHOR: DAHLIA,DOC PHYSICIAN: REFERRING PHYSICIAN: LEE RAMOS MD DATE OF SERVICE: 11/08/18 Discharge Plan Patient Name: CAYDEN DA SILVA Facility: [facility]:[place] : 1960 Planned Disposition: Home with Home Health Anticipated Discharge Date: Discharge Date: Expected LOS: Initial Reviewer: [id number] Initial Review Date: 11/08/2018 Generated: 11/08/18 12:50 pm Comments DCP- Discharge Planning Updated by [email or web address]: Juan Paredes on 11/08/18 10:[address] Patient Name: CAYDEN DA SILVA Admission Status: Elective Accout number: [id number] Admission Date: 11-07-2018 : 1960 Admission Diagnosis: Attending: LEE RAMOS Current LOS: 1 Anticipated DC Date: Planned Disposition: Home with Home Health Primary Insurance: AET[employer] PPO PLANNED EXTERNAL PROVIDER: [facility] Discharge Planning Comments: CM RECEIVED ORDER FOR HOME HEALTH AND HOME WOUND VAC. CM MET WITH PT IN ROOM TO DISCUSS DISCHARGE PLANNING AND NEEDS. PT REPORTS LIVING AT HOME INDEPENDENTLY WITH HIS . 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 PT HAS CPAP AND HOME OXYGEN FROM [facility] IN [place]. PT HAS NO OUTSIDE SERVICES ASSISTING IN THE HOME. CM DISCUSSED AVAILABILITY OF HOME HEALTH, REHAB SERVICES AND MEDICAL EQUIPMENT. PT WOULD LIKE HOME [facility]ALTH WITH [facility] AND NO PREFERENCE ON WOUND VAC PROVIDER. CHOICE SIGNED. PT GOES TO DIALYSIS IN [place] ON MWF, 1530 HOURS SCHEDULE AND HAS BEEN DRIVING HIMSELF TO DIALYSIS AFTER GETTING OFF FROM WORK. PT REPORTS HIS WILL PICK HIM UP FOR DISCHARGE HOME. CM CALLED [facility], , SPOKE TO DESMOND AND PROVIDED REFERRAL INFORMATION, FAXED REFERRAL TO [facility] AT [phone]. CM CALLED [facility], , SPOKE TO JUAN JOSE, PROVIDED REFERRAL INFORMATION AND FAXED REFERRAL FOR WOUND VAC TO [facility] AT [phone]. [facility] WILL BEGIN WORKING ON INSURANCE APPROVAL FOR WOUND VAC AND WILL NEED WOUND MEASUREMENTS SOON THE ARE AVAILABLE. CM TO FAX WOUND MEASUREMENTS TO [facility] AT [phone], WHEN DOCUMENTED, FOR COMPLETION OF WOUND VAC ARRANGEMENT. FOR DISCHARGE, CM WILL REQUIRE DETAILED HOME HEALTH ORDER, FAX TO [facility] AT [phone], NOTIFY [facility] OF DISCHARGE AT [phone]. User Interface Designer: Juan Paredes DCPIA - Discharge Planning Initial Assessment Updated by [email or web address]: Juan Paredes on 11/08/18 9:49 am * Is the patient Alert and Oriented? Yes * How many steps to enter\exit or inside your home? * PCP DR. REICH, [place] * Pharmacy [facility] * Preadmission Environment Home with Family * ADLs Independent * Equipment CPAP Oxygen * Other Equipment HOME OXYGEN FROM [facility] [place] * List name and contact numbers for known caregivers / representatives who currently or will assist patient after discharge: GOKUL DA SILVA, SPOUSE, * Verbal permission to speak to the caregivers and representatives has been obtained from the patient. N/A * Community resources currently utilized Other * Please name any agencies selected above. OUTPATIENT DIALYSIS, [facility], [facility], 1530 HOURS, PT DRIVES SELF * Additional services required to return to the preadmission environment? Yes * Can the patient safely return to the preadmission environment? Yes * Has this patient been hospitalized within the prior 30 days at any hospital? No Coverage Notice Reviewer: [id number] - Juan Paredes Notice Issued Date-Time: 11/08/2018 9:25 Notice Type: Patient Choice Letter Notice Delivered To: Patient Relationship to Patient: Verifying Machine Operator Name: Delivery Method: HAND - Hand Delivered Valerie Days: Prior Verbal Notification: Recipient Understood Notice: Yes Recipient Signature: Yes Med Rec Note Co-signed by Attending: Coverage Notice Comment: 1- [facility], 2- NO PREFERENCE Last DP export: 11/08/18 8:58 am Patient Name: CAYDEN DA SILVA Page [phone] at 1151 All edits/amendments must be made on the electronic document DICTATION DATE: 11/08/18 1150 LEAD FRONT DESK AGENT: RAMA 11/08/18 1150 RPT#: [id number] DC DATE: STATUS: ADM IN [facility] [address] [place] [address] END OF REPORT
[2018-11-08 12:53] VITALS: BP 114/66
[2018-11-08 13:50] VITALS: Ht 193 cm; Wt 143.6 kg
--- NOTE | 2018-11-08 14:32 | NUR ---
Wound vac dressing change: Pt has 3 open wounds on abdomen all are attached by tunneling. Upper most wound measures 10cm x 6cm x 3.5cm. It attaches to a small incision on the right by a tunnel 2.5cm long. The wound is 1.5cm x 2cm x 2cm. The upper most incision is also attached to an incision directly below. This tunnel is 7.5cm long and the incision is 7.5cm x 4.5cm x 6.2cm. During removal of the dressing I removed 4 pieces of black sponge. I applied new dressing using 7 pieces of black foam: 3 pieces for tunnels - 2 pieces for pigtails and 2 covering wound beds. Settings are -125mmhg high continuous. The wound beds are red and beefy, bleed easily and have no odor. There was a small amount of serosanguinous drainage in canister. Pt tolerated well.
--- NOTE | 2018-11-08 15:02 | NUR ---
PT TO CT VIA BED.
--- NOTE | 2018-11-08 15:02 | MORECARE ---
CASE MANAGEMENT DISCHARGE SUMMARY PATIENT: CAYDEN DA SILVA UNIT: [id number] ADM DATE: 11/07/18 AGE: 57 : 60 SEX: M ROOM/BED: D.2107 AUTHOR: DAHLIA,DOC PHYSICIAN: REFERRING PHYSICIAN: LEE RAMOS MD DATE OF SERVICE: 11/08/18 Discharge Plan Patient Name: CAYDEN DA SILVA Facility: [facility]:[place] : 1960 Planned Disposition: Home with Home Health Anticipated Discharge Date: Discharge Date: Expected LOS: Initial Reviewer: [email or web address] Initial Review Date: 11/08/2018 Generated: 11/08/18 4:01 pm Comments DCP- Discharge Planning Updated by [email or web address]: Juan Paredes on 11/08/18 1:[address] Patient Name: CAYDEN DA SILVA Admission Status: Elective Accout number: [id number] Admission Date: 11-07-2018 : 1960 Admission Diagnosis: Attending: LEE RAMOS Current LOS: 1 Anticipated DC Date: Planned Disposition: Home with Home Health Primary Insurance: AETNA PPO PLANNED EXTERNAL PROVIDER: [facility] Discharge Planning Comments: CM RECEIVED ORDER FOR HOME HEALTH AND HOME WOUND VAC. CM MET WITH PT IN ROOM TO DISCUSS DISCHARGE PLANNING AND NEEDS. PT REPORTS LIVING AT HOME INDEPENDENTLY WITH HIS . 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 PT HAS CPAP AND HOME OXYGEN FROM [facility] IN [place]. PT HAS NO OUTSIDE SERVICES ASSISTING IN THE HOME. CM DISCUSSED AVAILABILITY OF HOME HEALTH, REHAB SERVICES AND MEDICAL EQUIPMENT. PT WOULD LIKE HOME HEALTH WITH [facility] AND NO PREFERENCE ON WOUND VAC PROVIDER. CHOICE SIGNED. PT GOES TO DIALYSIS IN [place] ON MWF, 1530 HOURS SCHEDULE AND HAS BEEN DRIVING HIMSELF TO DIALYSIS AFTER GETTING OFF FROM WORK. PT REPORTS HIS WILL PICK HIM UP FOR DISCHARGE HOME. CM CALLED [facility], , SPOKE TO DESMOND AND PROVIDED REFERRAL INFORMATION, FAXED REFERRAL TO [facility] AT [phone]. CM CALLED [facility], , SPOKE TO JUAN JOSE, PROVIDED REFERRAL INFORMATION AND FAXED REFERRAL FOR WOUND VAC TO [facility] AT [phone]. [facility] WILL BEGIN WORKING ON INSURANCE APPROVAL FOR WOUND VAC AND WILL NEED WOUND MEASUREMENTS SOON THE ARE AVAILABLE. CM TO FAX WOUND MEASUREMENTS TO [facility] AT [phone], WHEN DOCUMENTED, FOR COMPLETION OF WOUND VAC ARRANGEMENT. FOR DISCHARGE, CM WILL REQUIRE DETAILED HOME HEALTH ORDER, FAX TO [facility] AT [phone], NOTIFY [facility] OF DISCHARGE AT [phone]. Wood Tank Erector: Juan Paredes Appended by Juan Paredes on 11/08/2018 14:58 CDT: CM FAXED WOUND MEASUREMENTS TO [facility] AT [phone]. CM WAITING APPROVAL FOR WOUND VAC. FOR DISCHARGE FAX DISCHARGE INFORMATION TO [facility] AT [phone], NOTIFY [facility] OF DISCHARGE AT [phone]. Wood Tank Erector: Juan Paredes DCPIA - Discharge Planning Initial Assessment Updated by [email or web address]: Juan Paredes on 11/08/18 9:49 am * Is the patient Alert and Oriented? Yes * How many steps to enter\exit or inside your home? * PCP DR. REICH, [place] * Pharmacy [facility] * Preadmission Environment Home with Family * ADLs Independent * Equipment CPAP Oxygen * Other Equipment HOME OXYGEN FROM [facility] IN [place] * List name and contact numbers for known caregivers / representatives who currently or will assist patient after discharge: GOKUL DA SILVA, SPOUSE, * Verbal permission to speak to the caregivers and representatives has been obtained from the patient. N/A * Community resources currently utilized Other * Please name any agencies selected above. OUTPATIENT DIALYSIS, [facility], 1530 HOURS, PT DRIVES SELF * Additional services required to return to the preadmission environment? Yes * Can the patient safely return to the preadmission environment? Yes * Has this patient been hospitalized within the prior 30 days at any hospital? No Coverage Notice Reviewer: [id number] - Juan Paredes Notice Issued Date-Time: 11/08/2018 9:25 Notice Type: Patient Choice Letter Notice Delivered To: Patient Relationship to Patient: Plumber Helper Name: Delivery Method: HAND - Hand Delivered Valerie Days: Prior Verbal Notification: Recipient Understood Notice: Yes Recipient Signature: Yes Med Rec Note Co-signed by Attending: Coverage Notice Comment: 1- [facility], 2- NO PREFERENCE Last DP export: 11/08/18 10:51 am Patient Name: CAYDEN DA SILVA Page [phone] at 1502 All edits/amendments must be made on the electronic document DICTATION DATE: 11/08/181500 LINTER OPERATOR: RAMA 11/08/181500 RPT#: [id number] DC DATE: STATUS: ADM IN [facility] [address] [place] [address] END OF REPORT
--- NOTE | 2018-11-08 15:18 | NUR ---
PT BACK TO FLOOR FROM CT VIA BED.
--- NOTE | 2018-11-08 16:58 | MORECARE ---
CASE MANAGEMENT DISCHARGE SUMMARY PATIENT: CAYDEN DA SILVA UNIT: [id number] ADM DATE: 11/07/18 AGE: 57 : 60 SEX: M ROOM/BED: D.2106 AUTHOR: DAHLIA,DOC PHYSICIAN: REFERRING PHYSICIAN: LEE RAMOS MD DATE OF SERVICE: 11/08/18 Discharge Plan Patient Name: CAYDEN DA SILVA Facility: [facility]:[place] : 1960 Planned Disposition: Home with Home Health Anticipated Discharge Date: Discharge Date: Expected LOS: Initial Reviewer: [email or web address] Initial Review Date: 11/08/2018 Generated: 11/08/18 5:58 pm Comments DCP- Discharge Planning Updated by [email or web address]: Juan Paredes on 11/08/18 3:[address] Patient Name: CAYDEN DA SILVA Admission Status: Elective Accout number: [id number] Admission Date: 11-07-2018 : 1960 Admission Diagnosis: Attending: LEE RAMOS Current LOS: 1 Anticipated DC Date: Planned Disposition: Home with Home Health Primary Insurance: AETNA PPO PLANNED EXTERNAL PROVIDER: [facility] Discharge Planning Comments: CM RECEIVED ORDER FOR HOME HEALTH AND HOME WOUND VAC. CM MET WITH PT IN ROOM TO DISCUSS DISCHARGE PLANNING AND NEEDS. PT REPORTS LIVING AT HOME INDEPENDENTLY WITH HIS . 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 PT HAS CPAP AND HOME OXYGEN FROM [facility] IN [place]. PT HAS NO OUTSIDE SERVICES ASSISTING IN THE HOME. CM DISCUSSED AVAILABILITY OF HOME HEALTH, REHAB SERVICES AND MEDICAL EQUIPMENT. PT WOULD LIKE HOME HEALTH WITH [facility] AND NO PREFERENCE ON WOUND VAC PROVIDER. CHOICE SIGNED. PT GOES TO DIALYSIS IN [place] ON MWF, 1530 HOURS SCHEDULE AND HAS BEEN DRIVING HIMSELF TO DIALYSIS AFTER GETTING OFF FROM WORK. PT REPORTS HIS WILL PICK HIM UP FOR DISCHARGE HOME. CM CALLED [facility], , SPOKE TO DESMOND AND PROVIDED REFERRAL INFORMATION, FAXED REFERRAL TO [facility] AT [phone]. CM CALLED [facility], , SPOKE TO JUAN JOSE, PROVIDED REFERRAL INFORMATION AND FAXED REFERRAL FOR WOUND VAC TO [facility] AT [phone]. [facility] WILL BEGIN WORKING ON INSURANCE APPROVAL FOR WOUND VAC AND WILL NEED WOUND MEASUREMENTS SOON THE ARE AVAILABLE. CM TO FAX WOUND MEASUREMENTS TO [facility] AT [phone], WHEN DOCUMENTED, FOR COMPLETION OF WOUND VAC ARRANGEMENT. FOR DISCHARGE, CM WILL REQUIRE DETAILED HOME HEALTH ORDER, FAX TO [facility] AT [phone], NOTIFY [facility] OF DISCHARGE AT [phone]. Electronic Calibration Technician: Juan Paredes Appended by Juan Paredes on 11/08/2018 14:58 CDT: CM FAXED WOUND MEASUREMENTS TO [facility] AT [phone]. CM WAITING APPROVAL FOR WOUND VAC. FOR DISCHARGE FAX DISCHARGE INFORMATION TO [facility] AT [phone], NOTIFY [facility] OF DISCHARGE AT [phone]. Electronic Calibration Technician: Juan Paredes Appended by Juan Paredes on 11/08/2018 16:51 CDT: CM OBTAINED DR. WORLEY'S SIGNAURE ON PRESCRIPTION FOR HOME WOUND VAC, FAXED SIGNED PRESCRIPTION FOR HOME WOUND VAC TO [facility] AT [phone]. CM WAITING APPROVAL FOR HOME WOUND VAC. FOR DISCHARGE FAX DISCHARGE INFORMATION TO [facility] AT [phone], NOTIFY [facility] OF DISCHARGE AT [phone]. Electronic Calibration Technician: Juan Paredes DCPIA - Discharge Planning Initial Assessment Updated by [email or web address]: Juan Paredes on 11/08/18 9:49 am * Is the patient Alert and Oriented? Yes * How many steps to enter\exit or inside your home? * PCP DR. REICH [place] * Pharmacy [facility] * Preadmission Environment Home with Family * ADLs Independent * Equipment CPAP Oxygen * Other Equipment HOME OXYGEN FROM [facility] [place] * List name and contact numbers for known caregivers / representatives who currently or will assist patient after discharge: GOKUL DA SILVA, SPOUSE, * Verbal permission to speak to the caregivers and representatives has been obtained from the patient. N/A * Community resources currently utilized Other * Please name any agencies selected above. OUTPATIENT DIALYSIS, [facility] [place], [facility], 1530 HOURS, PT DRIVES SELF * Additional services required to return to the preadmission environment? Yes * Can the patient safely return to the preadmission environment? Yes * Has this patient been hospitalized within the prior 30 days at any hospital? No Coverage Notice Reviewer: [id number] Jarrett Paredes Notice Issued Date-Time: 11/08/2018 9:25 Notice Type: Patient Choice Letter Notice Delivered To: Patient Relationship to Patient: Drafting Layout Man Name: Delivery Method: HAND - Hand Delivered Valerie Days: Prior Verbal Notification: Recipient Understood Notice: Yes Recipient Signature: Yes Med Rec Note Co-signed by Attending: Coverage Notice Comment: 1- [facility], 2- NO PREFERENCE Last DP export: 11/08/18 2:01 pm Patient Name: CAYDEN DA SILVA Page 16345 at 1658 All edits/amendments must be made on the electronic document DICTATION DATE: 11/08/181656 ASSISTANT STORE MANAGER TRAINEE: RAMA 11/08/181656 RPT#: [id number] DC DATE: STATUS: ADM IN [facility] [address] [place] [address] END OF REPORT
--- NOTE | 2018-11-08 17:56 | NUR ---
PT TO HD VIA BED.
--- NOTE | 2018-11-08 21:00 | NUR ---
BACK FROM HD. VSS ON ARRIVAL. HEMOVAC CONNECTED AND INTACT. PT AAOX4, NO S/S OF RESP DISTRESS. DENIES ANY FURTHER NEEDS AT THIS TIME. WILL CPOC. CL WITHIN REACH.
--- NOTE | 2018-11-08 23:56 | NUR ---
CPAP ON. BOTH EYES CLOSE. RESP EVEN AND UNLABORED. WILL CTM.
[2018-11-09 04:00] VITALS: BP 110/68
--- NOTE | 2018-11-09 07:30 | NUR ---
REPORT RECEIVED FROM APPLICATION PENETRATION TESTER AND PATIENT CARE ASSUMED. PATIENT LAYING IN BED ON BACK AWAKE, ALERT AND ORIENTED X4 . PATIENT IS STABLE AND VSS. PATIENT DENIES ANY NEEDS OR PAIN. WILL CONTINUE WITH PLAN OF CARE. SR UP X 2 BED IN LOW POSITION AND CALL LIGHT IN REACH.
[2018-11-09 08:12] LABS: BASOPHILS 0.6 % (0-2); EOSINOPHILS 4.1 % (0-7); HEMATOCRIT 29.6 % (42.0-54.0); HEMOGLOBIN 9.5 g/dL (13.5-17.5); IMMATURE GRANULOCYTES 0.7 % (0-5); LYMPHOCYTES 34.7 % (15-50); MCH 30.5 pg (26.0-34.0); MCHC 32.1 g/dL (31.0-37.0); NEUTROPHILS 47.9 % (40-80); PLATELET COUNT 166 10x3/uL (130-400); RBC 3.11 10x6/uL (4.20-6.10); RDW 17.5 % (11.5-14.5); WBC 10.5 10x3/uL (4.8-10.8)
[2018-11-09 08:20] LABS: MCV 95.2 fL (80.0-100.0)
[2018-11-09 08:31] LABS: ALBUMIN 3.4 g/dL (3.4-5.0); ANION GAP 14.7 mmol/L (8-16); BILIRUBIN - TOTAL 0.56 mg/dL (0.2-1.3); CALCIUM 10.2 mg/dL (8.5-10.1); CARBON DIOXIDE 28.9 mmol/L (21.0-32.0); CREATININE - SERUM 6.5 mg/dL (0.6-1.3); PHOSPHOROUS 5.5 mg/dL (2.5-4.9); POTASSIUM - SERUM 3.6 mmol/L (3.5-5.1); PROTEIN - SERUM 7.2 g/dL (6.4-8.2)
[2018-11-09 09:23] VITALS: BP 105/70
[2018-11-09] MEDS ORDERED: FOSRENOL500 MG PO (09:30)
--- NOTE | 2018-11-09 11:54 | MORECARE ---
CASE MANAGEMENT DISCHARGE SUMMARY PATIENT: CAYDEN DA SILVA UNIT: [id number] ADM DATE: 11/07/18 AGE: 57 : 60 SEX: M ROOM/BED: D.2103 AUTHOR: DAHLIA,DOC PHYSICIAN: REFERRING PHYSICIAN: LEE RAMOS MD DATE OF SERVICE: 11/09/18 Discharge Plan Patient Name: CAYDEN DA SILVA Facility: [facility]:[place] : 1960 Planned Disposition: Home with Home Health Anticipated Discharge Date: Discharge Date: Expected LOS: Initial Reviewer: [id number] Initial Review Date: 11/08/2018 Generated: 11/09/18 12:54 pm Comments DCP- Discharge Planning Updated by [id number]: Juan Paredes on 11/09/18 10:[address] Patient Name: CAYDEN DA SILVA Encounter No: [id number] : 1960 Primary Insurance: AETNA PPO Anticipated DC Date: Planned Disposition: Home with Home Health External Planned Provider: Home with Home Health Primary Insurance: AETNA PPO PLANNED EXTERNAL PROVIDER: [facility] Discharge Planning Comments: CM RECEIVED CALL FROM [facility], , SPOKE TO JUAN JOSE, PT HAS COPAY OF $46 PER DAY FOR WOUND VAC, NO UPFRONT COSTS AND THE COPAY WOULD BE BILLED TO PT FOR PAYMENT. CM NOTIFED PT IN ROOM. PT IS NOT SURE IF HE WANTS HOME WOUND VAC. CM EXPLAINED ALTERNATIVE OF TRADITIONAL DRESSING CHANGES THAT MAY BE MORE FREQUENT AND THAT MAY REQUIRE A LONGER HEALING TIME. PT STATES HE WILL THINK ABOUT IT AND LET CM KNOW HIS DECISION SOON HE MAKES IT. CM WAITING FOR PT TO DECIDE IF HE CAN / WILL PAY THE $46 COPAY FOR HOME WOUND VAC. [facility] WILL COMPLETE PROCESSING IF PT IS IN AGREEMENT. . FOR DISCHARGE FAX DISCHARGE INFORMATION TO [facility] AT [phone], NOTIFY [facility] OF DISCHARGE AT [phone]. Dialysis Rn: Juan Paredes DCP- Discharge Planning Updated by [email or web address]: Juan Paredes on 11/08/18 3:[address] Patient Name: CAYDEN DA SILVA Admission Status: Elective Accout number: [id number] Admission Date: 11-07-2018 : 1960 Admission Diagnosis: Attending: LEE RAMOS Current LOS: 1 Anticipated DC Date: Planned Disposition: Home with Home Health Primary Insurance: AETNA PPO PLANNED EXTERNAL PROVIDER: [facility] Discharge Planning Comments: CM RECEIVED ORDER FOR HOME HEALTH AND HOME WOUND VAC. CM MET WITH PT IN ROOM TO DISCUSS DISCHARGE PLANNING AND NEEDS. PT REPORTS LIVING AT HOME INDEPENDENTLY WITH HIS . 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 PT HAS CPAP AND HOME OXYGEN FROM [facility] IN [place]. PT HAS NO OUTSIDE SERVICES ASSISTING IN THE HOME. CM DISCUSSED AVAILABILITY OF HOME HEALTH, REHAB SERVICES AND MEDICAL EQUIPMENT. PT WOULD LIKE HOME HEALTH WITH [facility] AND NO PREFERENCE ON WOUND VAC PROVIDER. CHOICE SIGNED. PT GOES TO DIALYSIS IN [place] ON MWF, 1530 HOURS SCHEDULE AND HAS BEEN DRIVING HIMSELF TO DIALYSIS AFTER GETTING OFF FROM WORK. PT REPORTS HIS WILL PICK HIM UP FOR DISCHARGE HOME. CM CALLED [facility], , SPOKE TO DESMOND AND PROVIDED REFERRAL INFORMATION, FAXED REFERRAL TO [facility] AT [phone]. CM CALLED [facility], , SPOKE TO JUAN JOSE, PROVIDED REFERRAL INFORMATION AND FAXED REFERRAL FOR WOUND VAC TO [facility] AT [phone]. [facility] WILL BEGIN WORKING ON INSURANCE APPROVAL FOR WOUND VAC AND WILL NEED WOUND MEASUREMENTS SOON THE ARE AVAILABLE. CM TO FAX WOUND MEASUREMENTS TO [facility] AT [phone], WHEN DOCUMENTED, FOR COMPLETION OF WOUND VAC ARRANGEMENT. FOR DISCHARGE, CM WILL REQUIRE DETAILED HOME HEALTH ORDER, FAX TO [facility] AT [phone], NOTIFY [facility] OF DISCHARGE AT [phone]. Dialysis Rn: Juan Paredes Appended by Juan Paredes on 11/08/2018 14:58 CDT: CM FAXED WOUND MEASUREMENTS TO [facility] AT [phone]. CM WAITING APPROVAL FOR WOUND VAC. FOR DISCHARGE FAX DISCHARGE INFORMATION TO [facility] AT [phone], NOTIFY [facility] OF DISCHARGE AT [phone]. Dialysis Rn: Juan Paredes Appended by Juan Paredes on 11/08/2018 16:51 CDT: CM OBTAINED DR. WORLEY'S SIGNAURE ON PRESCRIPTION FOR HOME WOUND VAC, FAXED SIGNED PRESCRIPTION FOR HOME WOUND VAC TO [facility] AT [phone]. WAITING APPROVAL FOR HOME WOUND VAC. FOR DISCHARGE FAX DISCHARGE INFORMATION TO [facility] AT [phone], NOTIFY [facility] OF DISCHARGE AT [phone]. Dialysis Rn: Juan Paredes DCPIA - Discharge Planning Initial Assessment Updated by PALOMO: Juan Paredes on 11/08/18 9:49 am * Is the patient Alert and Oriented? Yes * How many steps to enter\exit or inside your home? * PCP DR. REICH, [place] * Pharmacy [facility] * Preadmission Environment Home with Family * ADLs Independent * Equipment CPAP Oxygen * Other Equipment HOME OXYGEN FROM [facility] IN [place] * List name and contact numbers for known caregivers / representatives who currently or will assist patient after discharge: GOKUL DA SILVA, SPOUSE, * Verbal permission to speak to the caregivers and representatives has been obtained from the patient. N/A * Community resources currently utilized Other * Please name any agencies selected above. OUTPATIENT DIALYSIS, [facility], 1530 HOURS, PT DRIVES SELF * Additional services required to return to the preadmission environment? Yes * Can the patient safely return to the preadmission environment? Yes * Has this patient been hospitalized within the prior 30 days at any hospital? No Coverage Notice Reviewer: [id number] - Juan Paredes Notice Issued Date-Time: 11/08/2018 9:25 Notice Type: Patient Choice Letter Notice Delivered To: Patient Relationship to Patient: Manager Radio Name: Delivery Method: HAND - Hand Delivered Valerie Days: Prior Verbal Notification: Recipient Understood Notice: Yes Recipient Signature: Yes Med Rec Note Co-signed by Attending: Coverage Notice Comment: 1- [facility], 2- NO PREFERENCE Last DP export: 11/08/18 3:58 pm Patient Name: CAYDEN DA SILVA Page 21698 at 1154 All edits/amendments must be made on the electronic document DICTATION DATE: 11/09/18 1153 TECHNICIAN HELPER INSTRUMENT: RAMA 11/09/18 1153 RPT#: [id number] DC DATE: STATUS: ADM IN [facility] [address] [place] [address] END OF REPORT
[2018-11-09 13:35] VITALS: BP 127/72
[2018-11-09 18:00] VITALS: BP 119/68
--- NOTE | 2018-11-09 18:22 | NUR ---
PATIENT LAYING IN BED ON BACK WATCHING TV. PATIENT DENIES ANY NEEDS OR PAIN. WILL CONTINUE TO MONITOR. SR UP X 2 BED IN LOW POSITION AND CALL LIGHT IN REACH.
[2018-11-09 20:00] VITALS: BP 134/73
--- NOTE | 2018-11-09 20:20 | NUR ---
PT ALERT/ORIENTED. WOUND VAC TO ABDOMINAL INCISION C/D/I. COMPLETE ASSESSMENT PER FLOW-SHEET. HOME CPAP FOR USE AT NIGHT. BROUGHT PT ICE WATER. NO OTHER NEEDS. WILL CONTINUE TO MONITOR.
[2018-11-10 04:00] VITALS: BP 112/66
[2018-11-10 05:04] LABS: BASOPHILS 0.5 % (0-2); EOSINOPHILS 5.2 % (0-7); HEMOGLOBIN 9.5 g/dL (13.5-17.5); IMMATURE GRANULOCYTES 0.5 % (0-5); LYMPHOCYTES 35.9 % (15-50); MCH 30.7 pg (26.0-34.0); MCHC 32.8 g/dL (31.0-37.0); MCV 93.9 fL (80.0-100.0); MEAN PLATELET VOLUME 9.9 fL (7.4-10.4); MONOCYTES 10.8 % (2-11); NEUTROPHILS 47.1 % (40-80); PLATELET COUNT 155 10x3/uL (130-400); RBC 3.09 10x6/uL (4.20-6.10); WBC 9.1 10x3/uL (4.8-10.8)
[2018-11-10 05:14] LABS: INR 1.16 (0.85-1.17); PROTIME 14.2 SECONDS (11.6-15.0)
[2018-11-10 05:18] LABS: ALBUMIN 3.1 g/dL (3.4-5.0); ANION GAP 13.9 mmol/L (8-16); BILIRUBIN - TOTAL 0.54 mg/dL (0.2-1.3); CALCIUM 10.4 mg/dL (8.5-10.1); CARBON DIOXIDE 29.3 mmol/L (21.0-32.0); CREATININE - SERUM 8.3 mg/dL (0.6-1.3); PHOSPHOROUS 5.5 mg/dL (2.5-4.9); POTASSIUM - SERUM 3.2 mmol/L (3.5-5.1); PROTEIN - SERUM 7.1 g/dL (6.4-8.2); VANCOMYCIN - RANDOM 22.7 ug/mL (10.0-20.0)
--- NOTE | 2018-11-10 07:14 | NUR ---
REPORT RECEIVED FROM DEEP [facility] FRY COOK AND PATIENT CARE ASSUMED. PATIENT LAYING IN BED ON BACK WITH EYES CLOSED BREATHING EVENLY WITH CPAP IN PLACE. VSS AND PATIENT IS STABLE. WILL CONTINUE WITH PLAN OF CARE. SR UP X 2 BED IN LOW POSTION AND CALL LIGHT IN REACH.
[2018-11-10 09:18] VITALS: BP 140/80
--- NOTE | 2018-11-10 11:14 | NUR ---
PATIENT AWAKE, ALERT AND ORIENTED X 4. PATIENT ASSESSMENT COMPLETED. WILL CONTINUE TO MONITOR . SR UP X 2 BED IN LOW POSITION AND CALL LIGHT IN REACH.
--- NOTE | 2018-11-10 11:57 | NUR ---
Nutrition follow-up: Diet: Renal ADA PO intake 100%of most meals Labs reviewed +BM Wt: 315# PO intake remains good at this time RDN following.
--- NOTE | 2018-11-10 12:51 | MORECARE ---
CASE MANAGEMENT DISCHARGE SUMMARY PATIENT: CAYDEN DA SILVA UNIT: [id number] ADM DATE: 11/07/18 AGE: 57 : 60 SEX: M ROOM/BED: D.2109 AUTHOR: DAHLIA,DOC PHYSICIAN: REFERRING PHYSICIAN: LEE RAMOS MD DATE OF SERVICE: 11/10/18 Discharge Plan Patient Name: CAYDEN DA SILVA Facility: [facility]:[place] : 1960 Planned Disposition: Home with Home Health Anticipated Discharge Date: Discharge Date: Expected LOS: Initial Reviewer: [id number] Initial Review Date: 11/08/2018 Generated: 11/10/18 1:51 pm Comments DCP- Discharge Planning Updated by [id number]: Juan Paredes on 11/09/18 10:[address] Patient Name: CAYDEN DA SILVA Encounter No: [id number] : 1960 Primary Insurance: AETNA PPO Anticipated DC Date: Planned Disposition: Home with Home Health External Planned Provider: Home with Home Health Primary Insurance: AETNA PPO PLANNED EXTERNAL PROVIDER: [facility] Discharge Planning Comments: CM RECEIVED CALL FROM [facility], , SPOKE TO JUAN JOSE, PT HAS COPAY OF $46 PER DAY FOR WOUND VAC, NO UPFRONT COSTS AND THE COPAY WOULD BE BILLED TO PT FOR PAYMENT. CM NOTIFED PT IN ROOM. PT IS NOT SURE IF HE WANTS HOME WOUND VAC. CM EXPLAINED ALTERNATIVE OF TRADITIONAL DRESSING CHANGES THAT MAY BE MORE FREQUENT AND THAT MAY REQUIRE A LONGER HEALING TIME. PT STATES HE WILL THINK ABOUT IT AND LET CM KNOW HIS DECISION SOON HE MAKES IT. CM WAITING FOR PT TO DECIDE IF HE CAN / WILL PAY THE $46 COPAY FOR HOME WOUND VAC. [facility] WILL COMPLETE PROCESSING IF PT IS IN AGREEMENT. . FOR DISCHARGE FAX DISCHARGE INFORMATION TO [facility] AT [phone], NOTIFY [facility] OF DISCHARGE AT [phone]. Winch Derrick Operator: Juan Paredes DCP- Discharge Planning Updated by [id number]: Juan Paredes on 11/08/18 3:[address] Patient Name: CAYDEN DA SILVA Admission Status: Elective Accout number: [id number] Admission Date: 11-07-2018 : 1960 Admission Diagnosis: Attending: LEE RAMOS Current LOS: 1 Anticipated DC Date: Planned Disposition: Home with Home Health Primary Insurance: AETNA PPO PLANNED EXTERNAL PROVIDER: [facility] Discharge Planning Comments: CM RECEIVED ORDER FOR HOME HEALTH AND HOME WOUND VAC. CM MET WITH PT IN ROOM TO DISCUSS DISCHARGE PLANNING AND NEEDS. PT REPORTS LIVING AT HOME INDEPENDENTLY WITH HIS . 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 PT HAS CPAP AND HOME OXYGEN FROM [facility] IN [place]. PT HAS NO OUTSIDE SERVICES ASSISTING IN THE HOME. CM DISCUSSED AVAILABILITY OF HOME HEALTH, REHAB SERVICES AND MEDICAL EQUIPMENT. PT WOULD LIKE HOME HEALTH WITH [facility] AND NO PREFERENCE ON WOUND VAC PROVIDER. CHOICE SIGNED. PT GOES TO DIALYSIS IN [place] ON MWF, 1530 HOURS SCHEDULE AND HAS BEEN DRIVING HIMSELF TO DIALYSIS AFTER GETTING OFF FROM WORK. PT REPORTS HIS WILL PICK HIM UP FOR DISCHARGE HOME. CM CALLED [facility], , SPOKE TO DESMOND AND PROVIDED REFERRAL INFORMATION, FAXED REFERRAL TO [facility] AT [phone]. CM CALLED [facility], , SPOKE TO JUAN JOSE, PROVIDED REFERRAL INFORMATION AND FAXED REFERRAL FOR WOUND VAC TO [facility] AT [phone]. [facility] WILL BEGIN WORKING ON INSURANCE APPROVAL FOR WOUND VAC AND WILL NEED WOUND MEASUREMENTS SOON THE ARE AVAILABLE. CM TO FAX WOUND MEASUREMENTS TO [facility] AT [phone], WHEN DOCUMENTED, FOR COMPLETION OF WOUND VAC ARRANGEMENT. FOR DISCHARGE, CM WILL REQUIRE DETAILED HOME HEALTH ORDER, FAX TO [facility] AT [phone], NOTIFY [facility] OF DISCHARGE AT [phone]. Winch Derrick Operator: Juan Paredes Appended by Juan Paredes on 11/08/2018 14:58 CDT: CM FAXED WOUND MEASUREMENTS TO [facility] AT [phone]. CM WAITING APPROVAL FOR WOUND VAC. FOR DISCHARGE FAX DISCHARGE INFORMATION TO [facility] AT [phone], NOTIFY [facility] OF DISCHARGE AT [phone]. Winch Derrick Operator: Juan Paredes Appended by Juan Paredes on 11/08/2018 16:51 CDT: CM OBTAINED DR. WORLEY'S SIGNAURE ON PRESCRIPTION FOR HOME WOUND VAC, FAXED SIGNED PRESCRIPTION FOR HOME WOUND VAC TO [facility] AT [phone]. WAITING APPROVAL FOR HOME WOUND VAC. FOR DISCHARGE FAX DISCHARGE INFORMATION TO [facility] AT [phone], NOTIFY [facility] OF DISCHARGE AT [phone]. Winch Derrick Operator: Juan Paredes DCPIA - Discharge Planning Initial Assessment Updated by PALOMO: Juan Paredes on 11/08/18 9:49 am * Is the patient Alert and Oriented? Yes * How many steps to enter\exit or inside your home? * PCP DR. REICH, [place] * Pharmacy [facility] * Preadmission Environment Home with Family * ADLs Independent * Equipment CPAP Oxygen * Other Equipment HOME OXYGEN FROM [facility] IN [place] * List name and contact numbers for known caregivers / representatives who currently or will assist patient after discharge: GOKUL DA SILVA, SPOUSE, * Verbal permission to speak to the caregivers and representatives has been obtained from the patient. N/A * Community resources currently utilized Other * Please name any agencies selected above. OUTPATIENT DIALYSIS, [facility], 1530 HOURS, PT DRIVES SELF * Additional services required to return to the preadmission environment? Yes * Can the patient safely return to the preadmission environment? Yes * Has this patient been hospitalized within the prior 30 days at any hospital? No Coverage Notice Reviewer: [id number] - Juan Paredes Notice Issued Date-Time: 11/08/2018 9:25 Notice Type: Patient Choice Letter Notice Delivered To: Patient Relationship to Patient: Motor Bike Mechanic Name: Delivery Method: HAND - Hand Delivered Valerie Days: Prior Verbal Notification: Recipient Understood Notice: Yes Recipient Signature: Yes Med Rec Note Co-signed by Attending: Coverage Notice Comment: 1- [facility], 2- NO PREFERENCE Last DP export: 11/09/18 10:54 am Patient Name: CAYDEN DA SILVA Page 18933 at 1251 All edits/amendments must be made on the electronic document DICTATION DATE: 11/10/18 1251 PACKAGE WINDER: RAMA 11/10/18 1251 RPT#: [id number] DC DATE: STATUS: ADM IN [facility] [address] [place] [address] END OF REPORT
--- NOTE | 2018-11-10 12:58 | MORECARE ---
CASE MANAGEMENT DISCHARGE SUMMARY PATIENT: CAYDEN DA SILVA UNIT: [id number] ADM DATE: 11/07/18 AGE: 57 : 60 SEX: M ROOM/BED: D.2104 AUTHOR: DAHLIA,DOC PHYSICIAN: REFERRING PHYSICIAN: LEE RAMOS MD DATE OF SERVICE: 11/10/18 Discharge Plan Patient Name: CAYDEN DA SILVA Facility: [facility]:[place] : 1960 Planned Disposition: Home with Home Health Anticipated Discharge Date: Discharge Date: Expected LOS: Initial Reviewer: [id number] Initial Review Date: 11/08/2018 Generated: 11/10/18 1:58 pm Comments DCP- Discharge Planning Updated by [id number]: Juan Paredes on 11/10/18 11:[address] Patient Name: CAYDEN DA SILVA Encounter No: [id number] : 1960 Primary Insurance: AETNA PPO Anticipated DC Date: Planned Disposition: Home with Home Health External Planned Provider[facility] Discharge Planning Comments: CM SPOKE TO PT IN ROOM, HE WILL NOT PAY THE $46 COPAY FOR HOME WOUND VAC. PT STATES HE WILL NOT GO HOME WITH A HOME VAC. CM CALLED JUAN JOSE OF [facility], CANCELLED WOUND VAC ORDER. CM NOTIFIED [facility] WHO ADVISED THEY HAVE PT ON SCHEDULE FOR TUESDAY ADMIT AND WILL NEED TO KNOW SPECIFIC WOUND CARE ORDERS TO MAKE SURE THEY CAN MEET PT'S HOME NEEDS. FOR DISCHARGE, [facility] NEEDS SPECIFIC WOUND CARE ORDERS SINCE PT HAS REFUSED HOME WOUND VAC. NOTIFY [facility] OF DISCHARGE AT [phone] TO ENSURE ACCEPTANCE. FAX DISCHARGE INFORMATION TO [facility] AT [phone], Public Relations Account Supervisor: Juan Paredes DCP- Discharge Planning Updated by [id number]: Juan Paredes on 11/09/18 10:[address] Patient Name: CAYDEN DA SILVA Encounter No: [id number] : 1960 Primary Insurance: AETNA PPO Anticipated DC Date: Planned Disposition: Home with Home Health External Planned Provider: Home with Home Health Primary Insurance: AETNA PPO PLANNED EXTERNAL PROVIDER: [facility] Discharge Planning Comments: CM RECEIVED CALL FROM [facility], , SPOKE TO JUAN JOSE, PT HAS COPAY OF $46 PER DAY FOR WOUND VAC, NO UPFRONT COSTS AND THE COPAY WOULD BE BILLED TO PT FOR PAYMENT. CM NOTIFED PT IN ROOM. PT IS NOT SURE IF HE WANTS HOME WOUND VAC. CM EXPLAINED ALTERNATIVE OF TRADITIONAL DRESSING CHANGES THAT MAY BE MORE FREQUENT AND THAT MAY REQUIRE A LONGER HEALING TIME. PT STATES HE WILL THINK ABOUT IT AND LET CM KNOW HIS DECISION SOON HE MAKES IT. CM WAITING FOR PT TO DECIDE IF HE CAN / WILL PAY THE $46 COPAY FOR HOME WOUND VAC. [facility] WILL COMPLETE PROCESSING IF PT IS IN AGREEMENT. . FOR DISCHARGE FAX DISCHARGE INFORMATION TO [facility] AT [phone], NOTIFY [facility] OF DISCHARGE AT [phone]. Public Relations Account Supervisor: Juan Paredes DCP- Discharge Planning Updated by [id number]: Juan Paredes on 11/08/18 3:[address] Patient Name: CAYDEN DA SILVA Admission Status: Elective Accout number: [id number] Admission Date: 11-07-2018 : 1960 Admission Diagnosis: Attending: LEE RAMOS Current LOS: 1 Anticipated DC Date: Planned Disposition: Home with Home Health Primary Insurance: AETNA PPO PLANNED EXTERNAL PROVIDER: [facility] Discharge Planning Comments: CM RECEIVED ORDER FOR HOME HEALTH AND HOME WOUND VAC. CM MET WITH PT IN ROOM TO DISCUSS DISCHARGE PLANNING AND NEEDS. PT REPORTS LIVING AT HOME INDEPENDENTLY WITH HIS . 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 PT HAS CPAP AND HOME OXYGEN FROM [facility] IN [place]. PT HAS NO OUTSIDE SERVICES ASSISTING IN THE HOME. CM DISCUSSED AVAILABILITY OF HOME HEALTH, REHAB SERVICES AND MEDICAL EQUIPMENT. PT WOULD LIKE HOME HEALTH WITH [facility] AND NO PREFERENCE ON WOUND VAC PROVIDER. CHOICE SIGNED. PT GOES TO DIALYSIS IN [place] ON MWF, 1530 HOURS SCHEDULE AND HAS BEEN DRIVING HIMSELF TO DIALYSIS AFTER GETTING OFF FROM WORK. PT REPORTS HIS WILL PICK HIM UP FOR DISCHARGE HOME. CM CALLED [facility], , SPOKE TO DESMOND AND PROVIDED REFERRAL INFORMATION, FAXED REFERRAL TO [facility] AT [phone]. CM CALLED [facility], , SPOKE TO JUAN JOSE, PROVIDED REFERRAL INFORMATION AND FAXED REFERRAL FOR WOUND VAC TO [facility] AT [phone]. [facility] WILL BEGIN WORKING ON INSURANCE APPROVAL FOR WOUND VAC AND WILL NEED WOUND MEASUREMENTS SOON THE ARE AVAILABLE. CM TO FAX WOUND MEASUREMENTS TO [facility] AT [phone], WHEN DOCUMENTED, FOR COMPLETION OF WOUND VAC ARRANGEMENT. FOR DISCHARGE, CM WILL REQUIRE DETAILED HOME HEALTH ORDER, FAX TO [facility] AT [phone], NOTIFY [facility] OF DISCHARGE AT [phone]. Public Relations Account Supervisor: Juan Paredes Appended by Juan Paredes on 11/08/2018 14:58 CDT: CM FAXED WOUND MEASUREMENTS TO [facility] AT [phone]. CM WAITING APPROVAL FOR WOUND VAC. FOR DISCHARGE FAX DISCHARGE INFORMATION TO [facility] AT [phone], NOTIFY [facility] OF DISCHARGE AT [phone]. Public Relations Account Supervisor: Juan Paredes Appended by Juan Paredes on 11/08/2018 16:51 CDT: CM OBTAINED DR. WORLEY'S SIGNAURE ON PRESCRIPTION FOR HOME WOUND VAC, FAXED SIGNED PRESCRIPTION FOR HOME WOUND VAC TO [facility] AT [phone]. CM WAITING APPROVAL FOR HOME WOUND VAC. FOR DISCHARGE FAX DISCHARGE INFORMATION TO [facility] AT [phone], NOTIFY [facility] OF DISCHARGE AT [phone]. Public Relations Account Supervisor: Juan Paredes DCPIA - Discharge Planning Initial Assessment Updated by [id number]: Juan Paredes on 11/08/18 9:49 am * Is the patient Alert and Oriented? Yes * How many steps to enter\exit or inside your home? * PCP DR. REICH, [place] * Pharmacy [facility] * Preadmission Environment Home with Family * ADLs Independent * Equipment CPAP Oxygen * Other Equipment HOME OXYGEN FROM [facility] IN [place] * List name and contact numbers for known caregivers / representatives who currently or will assist patient after discharge: GOKUL DA SILVA, SPOUSE, * Verbal permission to speak to the caregivers and representatives has been obtained from the patient. N/A * Community resources currently utilized Other * Please name any agencies selected above. OUTPATIENT DIALYSIS, [facility] - [place], [facility], 1530 HOURS, PT DRIVES SELF * Additional services required to return to the preadmission environment? Yes * Can the patient safely return to the preadmission environment? Yes * Has this patient been hospitalized within the prior 30 days at any hospital? No Coverage Notice Reviewer: [id number] Jarrett Paredes Notice Issued Date-Time: 11/08/2018 9:25 Notice Type: Patient Choice Letter Notice Delivered To: Patient Relationship to Patient: Nuclear Logging Engineer Name: Delivery Method: HAND - Hand Delivered Valerie Days: Prior Verbal Notification: Recipient Understood Notice: Yes Recipient Signature: Yes Med Rec Note Co-signed by Attending: Coverage Notice Comment: 1- [facility], 2- NO PREFERENCE Last DP export: 11/10/18 11:51 am Patient Name: CAYDEN DA SILVA Page [id number] at 1258 All edits/amendments must be made on the electronic document DICTATION DATE: 11/10/181257 TRACKMOBILE OPERATOR: RAMA 11/10/181257 RPT#: [id number] DC DATE: STATUS: ADM IN [facility] [address] [place] [address] END OF REPORT
[2018-11-10 13:12] VITALS: BP 149/71
--- NOTE | 2018-11-10 16:25 | NUR ---
WOUND VAC CHANGED ORDERED. 7 PIECES OF BLACK FOAM REMOVED AND 3 PIECES OF WHITE FOAM AND 4 PIECES OF BLACK FOAM APPLIED. PROCEDURE WAS WELL TOLERATED.
--- NOTE | 2018-11-10 20:00 | NUR ---
ALERT SITTIGN UP IN BED STATES JUST GOT BACK FROM DIALYSIS, DENIES PAIN, WOUND VAC DRESSING INTACT TO ABD, SEE SHIFT ASSESSMENT, CALL LIGHT IN REACH
[2018-11-10 20:22] VITALS: BP 118/62
[2018-11-11] VITALS (7 sets, daily range): BP systolic 101–134; BP diastolic 54–78
[2018-11-11 05:01] LABS: BASOPHILS 0.6 % (0-2); EOSINOPHILS 5.2 % (0-7); HEMATOCRIT 30.6 % (42.0-54.0); HEMOGLOBIN 10.3 g/dL (13.5-17.5); IMMATURE GRANULOCYTES 0.6 % (0-5); LYMPHOCYTES 32.3 % (15-50); MCHC 33.7 g/dL (31.0-37.0); MCV 92.2 fL (80.0-100.0); MEAN PLATELET VOLUME 9.9 fL (7.4-10.4); MONOCYTES 10.5 % (2-11); NEUTROPHILS 50.8 % (40-80); PLATELET COUNT 180 10x3/uL (130-400); RBC 3.32 10x6/uL (4.20-6.10); RDW 16.9 % (11.5-14.5); WBC 9.8 10x3/uL (4.8-10.8)
[2018-11-11 05:05] LABS: INR 1.13 (0.85-1.17)
[2018-11-11 05:23] LABS: ALBUMIN 3.6 g/dL (3.4-5.0); ANION GAP 13.3 mmol/L (8-16); BILIRUBIN - TOTAL 0.83 mg/dL (0.2-1.3); CALCIUM 10.4 mg/dL (8.5-10.1); CARBON DIOXIDE 30.1 mmol/L (21.0-32.0); CREATININE - SERUM 6.4 mg/dL (0.6-1.3); POTASSIUM - SERUM 3.4 mmol/L (3.5-5.1); PROTEIN - SERUM 8.3 g/dL (6.4-8.2); VANCOMYCIN - RANDOM 16.6 ug/mL (10.0-20.0)
--- NOTE | 2018-11-11 08:00 | NUR ---
A/A/OX4. SITTING UP ON SIDE OF BED EATING BREAKFAST. DENIES ANY PAIN OR DISCOMFORT. WOUND VAC TO ABD INCISION AND WORKING PROPERLY. DRESSING C/D/I. NO REQUESTS VOICED. ASSESSMENT COMPLETED AND WILL CONTINUE POC.
--- NOTE | 2018-11-11 15:48 | NUR ---
I have reviewed this patient and I concur with the Shift Assessment completed by the Licensed Practical Nurse today this shift.
--- NOTE | 2018-11-11 20:45 | NUR ---
EVENING ROUNDS COMPLETED. REPORT RECEIVED. PT SITTING UP ON TOILET WITH EYES OPEN, RR EVEN AND UNLABORED. INTRODUCED SELF TO PT. PT DENEIS FURTHER NEEDS AT THIS TIME. NO S/S OF DISTRESS NOTED. CALL LIGHT IN REACH. WILL CTM.
--- NOTE | 2018-11-12 03:10 | NUR ---
I have reviewed this patient and I concur with the Shift Assessment completed by the Licensed Practical Nurse today this shift.
[2018-11-12 03:36] VITALS: BP 124/68
[2018-11-12 03:52] LABS: BASOPHILS 0.6 % (0-2); EOSINOPHILS 5.7 % (0-7); HEMATOCRIT 31.6 % (42.0-54.0); HEMOGLOBIN 10.5 g/dL (13.5-17.5); IMMATURE GRANULOCYTES 0.7 % (0-5); MCH 31.1 pg (26.0-34.0); MCHC 33.2 g/dL (31.0-37.0); MCV 93.5 fL (80.0-100.0); MEAN PLATELET VOLUME 10.2 fL (7.4-10.4); MONOCYTES 9.3 % (2-11); NEUTROPHILS 48.7 % (40-80); PLATELET COUNT 171 10x3/uL (130-400); RBC 3.38 10x6/uL (4.20-6.10); RDW 17.2 % (11.5-14.5); WBC 11.1 10x3/uL (4.8-10.8)
[2018-11-12 04:17] LABS: INR 1.26 (0.85-1.17); PROTIME 15.3 SECONDS (11.6-15.0)
[2018-11-12 04:24] LABS: ALBUMIN 3.6 g/dL (3.4-5.0); BILIRUBIN - TOTAL 0.87 mg/dL (0.2-1.3); CALCIUM 11.1 mg/dL (8.5-10.1); CARBON DIOXIDE 28.3 mmol/L (21.0-32.0); PHOSPHOROUS 6.1 mg/dL (2.5-4.9)
[2018-11-12 04:26] LABS: ANION GAP 15.7 mmol/L (8-16); CREATININE - SERUM 8.3 mg/dL (0.6-1.3)
[2018-11-12 07:59] VITALS: BP 115/75
[2018-11-12 11:57] VITALS: BP 128/54
[2018-11-12 16:27] VITALS: BP 118/75
--- NOTE | 2018-11-12 18:20 | NUR ---
I have reviewed this patient and I concur with the Shift Assessment completed by the Licensed Practical Nurse today this shift.
--- NOTE | 2018-11-12 19:29 | NUR ---
EVENING ROUNDS COMPLETED. REPORT RECEIVED. PT SITTING UP IN BED WITH EYES OPEN, RR EVEN AND UNLABORED. BED IN LOW POSITION. NO S/S OF DISTRESS NOTED. INTRODUCED SELF TO PT. PT DENIES FURTHER NEEDS AT THIS TIME. WOUND VAC IN PLACE TO MID ABDOMEN. CALL LIGHT IN REACH. WILL CTM.
[2018-11-12 19:45] VITALS: BP 105/65
[2018-11-12 23:44] VITALS: BP 112/65
--- NOTE | 2018-11-13 02:50 | NUR ---
I have reviewed this patient and I concur with the Shift Assessment completed by the Licensed Practical Nurse today this shift.
[2018-11-13 03:42] VITALS: BP 111/64
[2018-11-13 05:34] LABS: BASOPHILS 0.7 % (0-2); EOSINOPHILS 5.6 % (0-7); HEMATOCRIT 30.2 % (42.0-54.0); LYMPHOCYTES 35.7 % (15-50); MCH 30.8 pg (26.0-34.0); MCHC 33.1 g/dL (31.0-37.0); MCV 92.9 fL (80.0-100.0); MEAN PLATELET VOLUME 9.8 fL (7.4-10.4); MONOCYTES 9.7 % (2-11); NEUTROPHILS 47.3 % (40-80); PLATELET COUNT 177 10x3/uL (130-400); RBC 3.25 10x6/uL (4.20-6.10); RDW 16.9 % (11.5-14.5); WBC 10.6 10x3/uL (4.8-10.8)
[2018-11-13 05:43] LABS: INR 1.4 (0.85-1.17); PROTIME 16.6 SECONDS (11.6-15.0)
[2018-11-13 05:59] LABS: ALBUMIN 3.4 g/dL (3.4-5.0); ANION GAP 12.6 mmol/L (8-16); BILIRUBIN - TOTAL 0.64 mg/dL (0.2-1.3); CALCIUM 10.9 mg/dL (8.5-10.1); CARBON DIOXIDE 30.8 mmol/L (21.0-32.0); CREATININE - SERUM 10.1 mg/dL (0.6-1.3); POTASSIUM - SERUM 3.4 mmol/L (3.5-5.1); PROTEIN - SERUM 7.8 g/dL (6.4-8.2); VANCOMYCIN - RANDOM 16.7 ug/mL (10.0-20.0)
--- NOTE | 2018-11-13 05:59 | NUR ---
DURING NIGHT PT ATTEMPTED TO AMBULATE TO BATHROOM AND PARTIALLY DISLODGED WOUND VAC DRESSING, REAPPLIED WOUND VAC AND SECURED WITH 3 TEGADERM DRESSINGS. NO S/S OF DRAINAGE FROM SITE. WILL NOTIFY ONCOMING NURSE.
--- NOTE | 2018-11-13 07:40 | NUR ---
PATIENT RESTING IN BED. ALERT/ORIENT. CALL LIGHT WITHIN REACH. VOICES NO NEEDS. WILL CONTINUE WITH PLAN OF CARE
[2018-11-13 07:59] VITALS: BP 118/70
--- NOTE | 2018-11-13 09:38 | NUR ---
DR OSEGUERA INTO SEE PATIENT. WOUND VAC REMOVED. [facility] IF [facility] IS ABLE TO GO TO A REHAB UNIT
--- NOTE | 2018-11-13 11:02 | NUR ---
PATIENT TAKEN DOWN TO DIALYSIS CLINIC BY STAFF
--- NOTE | 2018-11-13 12:14 | NUR ---
PATIENT LEFT UNIT TO GO OUT AND SMOKE
--- NOTE | 2018-11-13 13:53 | MORECARE ---
CASE MANAGEMENT DISCHARGE SUMMARY PATIENT: CAYDEN DA SILVA UNIT: [id number] ADM DATE: 11/07/18 AGE: 57 : 60 SEX: M ROOM/BED: D.2100 AUTHOR: DAHLIA,DOC PHYSICIAN: REFERRING PHYSICIAN: LEE RAMOS MD DATE OF SERVICE: 11/13/18 Discharge Plan Patient Name: CAYDEN DA SILVA Facility: [facility]:[place] : 1960 Planned Disposition: [facility] Anticipated Discharge Date: 11/13/18 Discharge Date: Expected LOS: 6 Initial Reviewer: [id number] Initial Review Date: 11/08/2018 Generated: 11/13/18 2:53 pm Comments DCP- Discharge Planning Updated by [email or web address]: Juan Paredes on 11/10/18 11:[address] Patient Name: CAYDEN DA SILVA Encounter No: [id number] : 1960 Primary Insurance: AETNA PPO Anticipated DC Date: Planned Disposition: Home with Home Health External Planned Provider:[facility] Discharge Planning Comments: CM SPOKE TO PT IN ROOM, HE WILL NOT PAY THE $46 COPAY FOR HOME WOUND VAC. PT STATES HE WILL NOT GO HOME WITH A HOME VAC. CM CALLED JUAN JOSE OF [facility], CANCELLED WOUND VAC ORDER. CM NOTIFIED [facility] WHO ADVISED THEY HAVE PT ON SCHEDULE FOR TUESDAY ADMIT AND WILL NEED TO KNOW SPECIFIC WOUND CARE ORDERS TO MAKE SURE THEY CAN MEET PT'S HOME NEEDS. FOR DISCHARGE, [facility] NEEDS SPECIFIC WOUND CARE ORDERS SINCE PT HAS REFUSED HOME WOUND VAC. NOTIFY [facility] OF DISCHARGE AT [phone] TO ENSURE ACCEPTANCE. FAX DISCHARGE INFORMATION TO [facility] AT [phone], Cream Hauler: Juan Paredes DCP- Discharge Planning Updated by [id number]: Juan Paredes on 11/09/18 10:[address] Patient Name: CAYDEN DA SILVA Encounter No: [id number] : 1960 Primary Insurance: AETNA PPO Anticipated DC Date: Planned Disposition: Home with Home Health External Planned Provider: Home with Home Health Primary Insurance: AETNA PPO PLANNED EXTERNAL PROVIDER: [facility] Discharge Planning Comments: CM RECEIVED CALL FROM [facility], , SPOKE TO JUAN JOSE, PT HAS COPAY OF $46 PER DAY FOR WOUND VAC, NO UPFRONT COSTS AND THE COPAY WOULD BE BILLED TO PT FOR PAYMENT. CM NOTIFED PT IN ROOM. PT IS NOT SURE IF HE WANTS HOME WOUND VAC. CM EXPLAINED ALTERNATIVE OF TRADITIONAL DRESSING CHANGES THAT MAY BE MORE FREQUENT AND THAT MAY REQUIRE A LONGER HEALING TIME. PT STATES HE WILL THINK ABOUT IT AND LET CM KNOW HIS DECISION SOON HE MAKES IT. CM WAITING FOR PT TO DECIDE IF HE CAN / WILL PAY THE $46 COPAY FOR HOME WOUND VAC. [facility] WILL COMPLETE PROCESSING IF PT IS IN AGREEMENT. . FOR DISCHARGE FAX DISCHARGE INFORMATION TO [facility] AT [phone], NOTIFY [facility] OF DISCHARGE AT [phone]. Cream Hauler: Juan Paredes DCP- Discharge Planning Updated by [email or web address]: Juan Paredes on 11/08/18 3:[address] Patient Name: CAYDEN DA SILVA Admission Status: Elective Accout number: [id number] Admission Date: 11-07-2018 : 1960 Admission Diagnosis: Attending: LEE RAMOS Current LOS: 1 Anticipated DC Date: Planned Disposition: Home with Home Health Primary Insurance: AETNA PPO PLANNED EXTERNAL PROVIDER: [facility] Discharge Planning Comments: CM RECEIVED ORDER FOR HOME HEALTH AND HOME WOUND VAC. CM MET WITH PT IN ROOM TO DISCUSS DISCHARGE PLANNING AND NEEDS. PT REPORTS LIVING AT HOME INDEPENDENTLY WITH HIS . 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 PT HAS CPAP AND HOME OXYGEN FROM [facility] IN [place]. PT HAS NO OUTSIDE SERVICES ASSISTING IN THE HOME. CM DISCUSSED AVAILABILITY OF HOME HEALTH, REHAB SERVICES AND MEDICAL EQUIPMENT. PT WOULD LIKE HOME HEALTH WITH [facility] AND NO PREFERENCE ON WOUND VAC PROVIDER. CHOICE SIGNED. PT GOES TO DIALYSIS IN [place] ON MWF, 1530 HOURS SCHEDULE AND HAS BEEN DRIVING HIMSELF TO DIALYSIS AFTER GETTING OFF FROM WORK. PT REPORTS HIS WILL PICK HIM UP FOR DISCHARGE HOME. CM CALLED [facility], , SPOKE TO DESMOND AND PROVIDED REFERRAL INFORMATION, FAXED REFERRAL TO [facility] AT [phone]. CM CALLED [facility], , SPOKE TO JUAN JOSE, PROVIDED REFERRAL INFORMATION AND FAXED REFERRAL FOR WOUND VAC TO [facility] AT [phone]. [facility] WILL BEGIN WORKING ON INSURANCE APPROVAL FOR WOUND VAC AND WILL NEED WOUND MEASUREMENTS SOON THE ARE AVAILABLE. CM TO FAX WOUND MEASUREMENTS TO [facility] AT [phone], WHEN DOCUMENTED, FOR COMPLETION OF WOUND VAC ARRANGEMENT. FOR DISCHARGE, CM WILL REQUIRE DETAILED HOME HEALTH ORDER, FAX TO [facility] AT [phone], NOTIFY [facility] OF DISCHARGE AT [phone]. Cream Hauler: Juan Paredes Appended by Juan Paredes on 11/08/2018 14:58 CDT: CM FAXED WOUND MEASUREMENTS TO [facility] AT [phone]. CM WAITING APPROVAL FOR WOUND VAC. FOR DISCHARGE FAX DISCHARGE INFORMATION TO [facility] AT [phone], NOTIFY [facility] OF DISCHARGE AT [phone]. Cream Hauler: Juan Paredes Appended by Juan Paredes on 11/08/2018 16:51 CDT: CM OBTAINED DR. WORLEY'S SIGNAURE ON PRESCRIPTION FOR HOME WOUND VAC, FAXED SIGNED PRESCRIPTION FOR HOME WOUND VAC TO [facility] AT [phone]. CM WAITING APPROVAL FOR HOME WOUND VAC. FOR DISCHARGE FAX DISCHARGE INFORMATION TO [facility] AT [phone], NOTIFY [facility] OF DISCHARGE AT [phone]. Cream Hauler: Juan Paredes DCPIA - Discharge Planning Initial Assessment Updated by [id number]: Juan Paredes on 11/08/18 9:49 am * Is the patient Alert and Oriented? Yes * How many steps to enter\exit or inside your home? * PCP DR. REICH [place] * Pharmacy [facility] * Preadmission Environment Home with Family * ADLs Independent * Equipment CPAP Oxygen * Other Equipment HOME OXYGEN FROM [facility] IN [place] * List name and contact numbers for known caregivers / representatives who currently or will assist patient after discharge: GOKUL DA SILVA, SPOUSE, * Verbal permission to speak to the caregivers and representatives has been obtained from the patient. N/A * Community resources currently utilized Other * Please name any agencies selected above. OUTPATIENT DIALYSIS, [facility], 1530 HOURS, PT DRIVES SELF * Additional services required to return to the preadmission environment? Yes * Can the patient safely return to the preadmission environment? Yes * Has this patient been hospitalized within the prior 30 days at any hospital? No External Providers External Provider: Medina Marcano of [place] Next Contact Date: 11/13/2018 Service Request Date: Service Type: Resolution: Reviewer: Comments: Coverage Notice Reviewer: [id number] - Juan Paredes Notice Issued Date-Time: 11/08/2018 9:25 Notice Type: Patient Choice Letter Notice Delivered To: Patient Relationship to Patient: Client Service Coordinator Name: Delivery Method: HAND - Hand Delivered Valerie Days: Prior Verbal Notification: Recipient Understood Notice: Yes Recipient Signature: Yes Med Rec Note Co-signed by Attending: Coverage Notice Comment: 1- [facility], 2- NO PREFERENCE Last DP export: 11/10/18 11:58 am Patient Name: CAYDEN DA SILVA Page 52773 at 1353 All edits/amendments must be made on the electronic document DICTATION DATE: 11/13/18 135 SENIOR ENGINEERING ASSOCIATE: RAMA 11/13/18 1352 RPT#: [id number] DC DATE: STATUS: ADM IN [facility] [address] [place] [address] END OF REPORT
--- NOTE | 2018-11-13 14:15 | MORECARE ---
CASE MANAGEMENT DISCHARGE SUMMARY PATIENT: CAYDEN DA SILVA UNIT: [id number] ADM DATE: 11/07/18 AGE: 57 : 60 SEX: M ROOM/BED: D.2107 AUTHOR: DAHLIA,DOC PHYSICIAN: REFERRING PHYSICIAN: LEE RAMOS MD DATE OF SERVICE: 11/13/18 Discharge Plan Patient Name: CAYDEN DA SILVA Facility: [facility]:[place] : 1960 Planned Disposition: [facility] Acute Care Facility Anticipated Discharge Date: 11/13/18 Discharge Date: Expected LOS: 6 Initial Reviewer: [id number] Initial Review Date: 11/08/2018 Generated: 11/13/18 3:15 pm Comments DCP- Discharge Planning Updated by [id number]: Juan Paredes on 11/13/18 1:[address] Patient Name: CAYDEN DA SILVA Encounter No: [id number] : 1960 Primary Insurance: AETNA PPO Anticipated DC Date: 11-13-2018 Planned Disposition: [facility] Acute Care Facility External Planned Provider: :[facility] [place] DCP follow-up note: CM SPOKE TO DR. RAMOS AND RECEIVED LTACH ORDER. DR. RAMOS INFORMED CM THAT HE DOES NOT THINK THAT PT WILL HEAL WELL AT HOME AND WOULD LIKE PLACMENT FOR WOUND CARE TO PREVENT REHOSPITALIZATION. CM CALLED [facility], , SPOKE TO ANTONIETA WHO INFORMED CM THAT COMMERCIAL INSURANCE DOES NOT REQUIRE THREE MIDNIGHTS IN ICU AND THEY WOULD CONTACT PT'S INSURANCE COMPANY IN [place] TO SECURE AUTHORZATION FOR LTACH SERVICES. CM FAXED REFERRAL TO MYLA ANGULO, . CM WAITING ADMISSION DETERMINATION AND INSURANCE AUTHORIZATION FOR [facility]UST[facility]IAL [facility]. LETICIA Ward DCP- Discharge Planning Updated by [id number]: Juan Paredes on 11/10/18 11:[address] Patient Name: CAYDEN DA SILVA Encounter No: [id number] : 1960 Primary Insurance: AETNA PPO Anticipated DC Date: Planned Disposition: Home with Home Health External Planned Provider:[facility] Discharge Planning Comments: CM SPOKE TO PT IN ROOM, HE WILL NOT PAY THE $46 COPAY FOR HOME WOUND VAC. PT STATES HE WILL NOT GO HOME WITH A HOME VAC. CM CALLED JUAN JOSE OF [facility], CANCELLED WOUND VAC ORDER. CM NOTIFIED [facility] WHO ADVISED THEY HAVE PT ON SCHEDULE FOR TUESDAY ADMIT AND WILL NEED TO KNOW SPECIFIC WOUND CARE ORDERS TO MAKE SURE THEY CAN MEET PT'S HOME NEEDS. FOR DISCHARGE, [facility] NEEDS SPECIFIC WOUND CARE ORDERS SINCE PT HAS REFUSED HOME WOUND VAC. NOTIFY [facility] OF DISCHARGE AT [phone] TO ENSURE ACCEPTANCE. FAX DISCHARGE INFORMATION TO [facility] AT [phone], Employee Relations Administrator: Juan Paredes DCP- Discharge Planning Updated by [id number]: Juan Paredes on 11/09/18 10:[address] Patient Name: CAYDEN DA SILVA Encounter No: [id number] : 1960 Primary Insurance: AETNA PPO Anticipated DC Date: Planned Disposition: Home with Home Health External Planned Provider: Home with Home Health Primary Insurance: AETNA PPO PLANNED EXTERNAL PROVIDER: [facility] Discharge Planning Comments: CM RECEIVED CALL FROM [facility], , SPOKE TO JUAN JOSE, PT HAS COPAY OF $46 PER DAY FOR WOUND VAC, NO UPFRONT COSTS AND THE COPAY WOULD BE BILLED TO PT FOR PAYMENT. CM NOTIFED PT IN ROOM. PT IS NOT SURE IF HE WANTS HOME WOUND VAC. CM EXPLAINED ALTERNATIVE OF TRADITIONAL DRESSING CHANGES THAT MAY BE MORE FREQUENT AND THAT MAY REQUIRE A LONGER HEALING TIME. PT STATES HE WILL THINK ABOUT IT AND LET CM KNOW HIS DECISION SOON HE MAKES IT. CM WAITING FOR PT TO DECIDE IF HE CAN / WILL PAY THE $46 COPAY FOR HOME WOUND VAC. [facility] WILL COMPLETE PROCESSING IF PT IS IN AGREEMENT. . FOR DISCHARGE FAX DISCHARGE INFORMATION TO [facility] AT [phone], NOTIFY [facility] OF DISCHARGE AT [phone]. Employee Relations Administrator: Juan Paredes DCP- Discharge Planning Updated by [id number]: Juan Paredes on 11/08/18 3:[address] Patient Name: CAYDEN DA SILVA Admission Status: Elective Accout number: [id number] Admission Date: 11-07-2018 : 1960 Admission Diagnosis: Attending: LEE RAMOS Current LOS: 1 Anticipated DC Date: Planned Disposition: Home with Home Health Primary Insurance: AETNA PPO PLANNED EXTERNAL PROVIDER: [facility] Discharge Planning Comments: CM RECEIVED ORDER FOR HOME HEALTH AND HOME WOUND VAC. CM MET WITH PT IN ROOM TO DISCUSS DISCHARGE PLANNING AND NEEDS. PT REPORTS LIVING AT HOME INDEPENDENTLY WITH HIS . 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 PT HAS CPAP AND HOME OXYGEN FROM [facility] IN [place]. PT HAS NO OUTSIDE SERVICES ASSISTING IN THE HOME. CM DISCUSSED AVAILABILITY OF HOME HEALTH, REHAB SERVICES AND MEDICAL EQUIPMENT. PT WOULD LIKE HOME HEALTH WITH [facility] AND NO PREFERENCE ON WOUND VAC PROVIDER. CHOICE SIGNED. PT GOES TO DIALYSIS IN [place] ON MWF, 1530 HOURS SCHEDULE AND HAS BEEN DRIVING HIMSELF TO DIALYSIS AFTER GETTING OFF FROM WORK. PT REPORTS HIS WILL PICK HIM UP FOR DISCHARGE HOME. CM CALLED [facility], , SPOKE TO DESMOND AND PROVIDED REFERRAL INFORMATION, FAXED REFERRAL TO [facility] AT [phone]. CM CALLED [facility], , SPOKE TO JUAN JOSE, PROVIDED REFERRAL INFORMATION AND FAXED REFERRAL FOR WOUND VAC TO [facility] AT [phone]. [facility] WILL BEGIN WORKING ON INSURANCE APPROVAL FOR WOUND VAC AND WILL NEED WOUND MEASUREMENTS SOON THE ARE AVAILABLE. CM TO FAX WOUND MEASUREMENTS TO [facility] AT [phone], WHEN DOCUMENTED, FOR COMPLETION OF WOUND VAC ARRANGEMENT. FOR DISCHARGE, CM WILL REQUIRE DETAILED HOME HEALTH ORDER, FAX TO [facility] AT [phone], NOTIFY [facility] OF DISCHARGE AT [phone]. Employee Relations Administrator: Juan Paredes Appended by Juan Paredes on 11/08/2018 14:58 CDT: CM FAXED WOUND MEASUREMENTS TO [facility] AT [phone]. CM WAITING APPROVAL FOR WOUND VAC. FOR DISCHARGE FAX DISCHARGE INFORMATION TO [facility] AT [phone], NOTIFY [facility] OF DISCHARGE AT [phone]. Employee Relations Administrator: Juan Paredes Appended by Juan Paredes on 11/08/2018 16:51 CDT: CM OBTAINED DR. WORLEY'S SIGNAURE ON PRESCRIPTION FOR HOME WOUND VAC, FAXED SIGNED PRESCRIPTION FOR HOME WOUND VAC TO [facility] AT [phone]. CM WAITING APPROVAL FOR HOME WOUND VAC. FOR DISCHARGE FAX DISCHARGE INFORMATION TO [facility] AT [phone], NOTIFY [facility] OF DISCHARGE AT [phone]. Employee Relations Administrator: Juan Paredes DCPIA - Discharge Planning Initial Assessment Updated by [email or web address]: Juan Paredes on 11/08/18 9:49 am * Is the patient Alert and Oriented? Yes * How many steps to enter\exit or inside your home? * [facility] * Pharmacy [facility] * Preadmission Environment Home with Family * ADLs Independent * Equipment CPAP Oxygen * Other Equipment HOME OXYGEN FROM [facility] IN [place] * List name and contact numbers for known caregivers / representatives who currently or will assist patient after discharge: GOKUL DA SILVA, SPOUSE, * Verbal permission to speak to the caregivers and representatives has been obtained from the patient. N/A * Community resources currently utilized Other * Please name any agencies selected above. OUTPATIENT DIALYSIS, [facility], 1530 HOURS, PT DRIVES SELF * Additional services required to return to the preadmission environment? Yes * Can the patient safely return to the preadmission environment? Yes * Has this patient been hospitalized within the prior 30 days at any hospital? No Coverage Notice Reviewer: [id number] - Juan Paredes Notice Issued Date-Time: 11/08/2018 9:25 Notice Type: Patient Choice Letter Notice Delivered To: Patient Relationship to Patient: Athletic Equipment Custodian Name: Delivery Method: HAND - Hand Delivered Valerie Days: Prior Verbal Notification: Recipient Understood Notice: Yes Recipient Signature: Yes Med Rec Note Co-signed by Attending: Coverage Notice Comment: 1- [facility], 2- NO PREFERENCE Last DP export: 11/13/18 12:53 p Patient Name: CAYDEN DA SILVA Page [id number] at 1415 All edits/amendments must be made on the electronic document DICTATION DATE: 11/13/181413 SIZING END BANDER: RAMA 11/13/181413 RPT#: [id number] DC DATE: STATUS: ADM IN [facility] [address] [place] [address] END OF REPORT
--- NOTE | 2018-11-13 14:44 | NUR ---
PATIENT BACK FROM DIALYSIS CLINIC. WOUND NURSE IN PATIENTS ROOM. WOND VAC CHANGED OUT
--- NOTE | 2018-11-13 15:03 | NUR ---
WOUND VAC DRESSING CHANGE: REMOVED 3PIECES WHITE FOAM AND 4 PIECES BLACK FOAM DATE: 11/13/18 WOUND LOCATION: A) UPPER ABDOMEN B) LOWER ABDOMEN C) RIGHT UPPER ABDOMEN WOUND MEASUREMENTS: A) 9CM X 6CM X 3.6CM X 4.5CM @ 6 OCLOCK (IMPROVED) B) 6CM X 5CM X 5CM X 3.8CM @ 12 OCLOCK (IMPROVED) C) 1CM X 2CM X 2CM X 1CM @ 3 OCLOCK (IMPROVED) WOUND DESCRIPTION: RED/BEEFY MUSCLE, TENDON, OR BONE EXPOSED? NO DRAINAGE AMOUNT/DESCRIPTION: MODERATE SEROSANGUINOUS ODOR? NO ODOR TYPE OF SPONGE USED AND AMOUNT: 3 PIECES OF WHITE SPONGE + 5 PIECES BLACK SETTINGS:-125MMHG MODERATE CONTINUOUS TEACHING: HEALING PROCESS PT TOLERATED WELL.
--- NOTE | 2018-11-13 16:47 | MORECARE ---
CASE MANAGEMENT DISCHARGE SUMMARY PATIENT: CAYDEN DA SILVA UNIT: [id number] ADM DATE: 11/07/18 AGE: 57 : 60 SEX: M ROOM/BED: D.2107 AUTHOR: DAHLIA,DOC PHYSICIAN: REFERRING PHYSICIAN: LEE RAMOS MD DATE OF SERVICE: 11/13/18 Discharge Plan Patient Name: CAYDEN DA SILVA Facility: [facility]:[place] : 1960 Planned Disposition: Energy Attorney Acute Care Facility Anticipated Discharge Date: 11/13/18 Discharge Date: Expected LOS: 6 Initial Reviewer: [id number] Initial Review Date: 11/08/2018 Generated: 11/13/18 5:47 pm Comments DCP- Discharge Planning Updated by PALOMO: Juan Paredes on 11/13/18 3:[address] Patient Name: CAYDEN DA SILVA Encounter No: [id number] : 1960 Primary Insurance: AETNA PPO Anticipated DC Date: 11-13-2018 Planned Disposition: Energy Attorney Acute Care Facility External Planned Provider: :[facility]LA ANGULO [place] DCP follow-up note: CM SPOKE TO DR. RAMOS AND RECEIVED LTACH ORDER. DR. RAMOS INFORMED CM THAT HE DOES NOT THINK THAT PT WILL HEAL WELL AT HOME AND WOULD LIKE PLACMENT FOR WOUND CARE TO PREVENT REHOSPITALIZATION. CM CALLED [facility], , SPOKE TO ANTONIETA WHO INFORMED CM THAT COMMERCIAL INSURANCE DOES NOT REQUIRE THREE MIDNIGHTS IN ICU AND THEY WOULD CONTACT PT'S INSURANCE COMPANY IN ATTEPT TO SECURE AUTHORZATION FOR LTACH SERVICES. CM FAXED REFERRAL TO MYLA ANGULO, . CM WAITING ADMISSION DETERMINATION AND INSURANCE AUTHORIZATION FOR [facility]UTE [facility] SERVICES AT [facility]. Juan Paredes, CASE MANAGEMENT Appended by Juan Paredes on 11/13/2018 16:42 CDT: CM SPOKE TO PT IN ROOM, DISCUSSED LTACH EVALUATION AND LOCATION IN [place]. PT IN AGREEMENT WITH PLAN. CM WAITING ADMISSION DETERMINATION AND INSURANCE AUTHORIZATION FOR [facility]ENITENTIARY ACUTE [facility]ARE [facility] SERVICES AT [facility]. LETICIA Ward DCP- Discharge Planning Updated by [id number]: Juan Paredes on 11/10/18 11:[address] Patient Name: CAYDEN DA SILVA Encounter No: [id number] : 1960 Primary Insurance: AETNA PPO Anticipated DC Date: Planned Disposition: Home with Home Health External Planned Provider:[facility] Discharge Planning Comments: CM SPOKE TO PT IN ROOM, HE WILL NOT PAY THE $46 COPAY FOR HOME WOUND VAC. PT STATES HE WILL NOT GO HOME WITH A HOME VAC. CM CALLED JUAN JOSE OF [facility], CANCELLED WOUND VAC ORDER. CM NOTIFIED [facility] WHO ADVISED THEY HAVE PT ON SCHEDULE FOR TUESDAY ADMIT AND WILL NEED TO KNOW SPECIFIC WOUND CARE ORDERS TO MAKE SURE THEY CAN MEET PT'S HOME NEEDS. FOR DISCHARGE, [facility] NEEDS SPECIFIC WOUND CARE ORDERS SINCE PT HAS REFUSED HOME WOUND VAC. NOTIFY [facility] OF DISCHARGE AT [phone] TO ENSURE ACCEPTANCE. FAX DISCHARGE INFORMATION TO [facility] AT [phone], Swimming Pool Installer: Juan Paredes DCP- Discharge Planning Updated by [id number]: Juan Paredes on 11/09/18 10:[address] Patient Name: CAYDEN DA SILVA Encounter No: [id number] : 1960 Primary Insurance: AETNA PPO Anticipated DC Date: Planned Disposition: Home with Home Health External Planned Provider: Home with Home Health Primary Insurance: AETNA PPO PLANNED EXTERNAL PROVIDER: [facility] Discharge Planning Comments: CM RECEIVED CALL FROM [facility], , SPOKE TO JUAN JOSE, PT HAS COPAY OF $46 PER DAY FOR WOUND VAC, NO UPFRONT COSTS AND THE COPAY WOULD BE BILLED TO PT FOR PAYMENT. CM NOTIFED PT IN ROOM. PT IS NOT SURE IF HE WANTS HOME WOUND VAC. CM EXPLAINED ALTERNATIVE OF TRADITIONAL DRESSING CHANGES THAT MAY BE MORE FREQUENT AND THAT MAY REQUIRE A LONGER HEALING TIME. PT STATES HE WILL THINK ABOUT IT AND LET CM KNOW HIS DECISION SOON HE MAKES IT. CM WAITING FOR PT TO DECIDE IF HE CAN / WILL PAY THE $46 COPAY FOR HOME WOUND VAC. [facility] WILL COMPLETE PROCESSING IF PT IS IN AGREEMENT. . FOR DISCHARGE FAX DISCHARGE INFORMATION TO CARE AT [phone], NOTIFY [facility] OF DISCHARGE AT [phone]. Swimming Pool Installer: Juan Paredes DCP- Discharge Planning Updated by [id number]: Juan Paredes on 11/08/18 3:[address] Patient Name: CAYDEN DA SILVA Admission Status: Elective Accout number: [id number] Admission Date: 11-07-2018 : 1960 Admission Diagnosis: Attending: LEE RAMOS Current LOS: 1 Anticipated DC Date: Planned Disposition: Home with Home Health Primary Insurance: AETNA PPO PLANNED EXTERNAL PROVIDER: [facility] Discharge Planning Comments: CM RECEIVED ORDER FOR HOME HEALTH AND HOME WOUND VAC. CM MET WITH PT IN ROOM TO DISCUSS DISCHARGE PLANNING AND NEEDS. PT REPORTS LIVING AT HOME INDEPENDENTLY WITH HIS . 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 PT HAS CPAP AND HOME OXYGEN FROM [facility] [place] IN [place]. PT HAS NO OUTSIDE SERVICES ASSISTING IN THE HOME. CM DISCUSSED AVAILABILITY OF HOME HEALTH, REHAB SERVICES AND MEDICAL EQUIPMENT. PT WOULD LIKE HOME HEALTH WITH [facility] AND NO PREFERENCE ON WOUND VAC PROVIDER. CHOICE SIGNED. PT GOES TO DIALYSIS IN [place] ON MWF, 1530 HOURS SCHEDULE AND HAS BEEN DRIVING HIMSELF TO DIALYSIS AFTER GETTING OFF FROM WORK. PT REPORTS HIS WILL PICK HIM UP FOR DISCHARGE HOME. CM CALLED [facility], , SPOKE TO DESMOND AND PROVIDED REFERRAL INFORMATION, FAXED REFERRAL TO [facility] AT [phone]. CM CALLED [facility], , SPOKE TO JUAN JOSE, PROVIDED REFERRAL INFORMATION AND FAXED REFERRAL FOR WOUND VAC TO [facility] AT [phone]. [facility] WILL BEGIN WORKING ON INSURANCE APPROVAL FOR WOUND VAC AND WILL NEED WOUND MEASUREMENTS SOON THE ARE AVAILABLE. CM TO FAX WOUND MEASUREMENTS TO [facility] AT [phone], WHEN DOCUMENTED, FOR COMPLETION OF WOUND VAC ARRANGEMENT. FOR DISCHARGE, CM WILL REQUIRE DETAILED HOME HEALTH ORDER, FAX TO [facility] AT [phone], NOTIFY [facility] OF DISCHARGE AT [phone]. Swimming Pool Installer: Juan Paredes Appended by Juan Paredes on 11/08/2018 14:58 CDT: CM FAXED WOUND MEASUREMENTS TO [facility] AT [phone]. CM WAITING APPROVAL FOR WOUND VAC. FOR DISCHARGE FAX DISCHARGE INFORMATION TO [facility] AT [phone], NOTIFY [facility] OF DISCHARGE AT [phone]. Swimming Pool Installer: Juan Paredes Appended by Juan Paredes on 11/08/2018 16:51 CDT: CM OBTAINED DR. WORLEY'S SIGNAURE ON PRESCRIPTION FOR HOME WOUND VAC, FAXED SIGNED PRESCRIPTION FOR HOME WOUND VAC TO [facility] AT [phone]. CM WAITING APPROVAL FOR HOME WOUND VAC. FOR DISCHARGE FAX DISCHARGE INFORMATION TO [facility] AT [phone], NOTIFY [facility] OF DISCHARGE AT [phone]. Swimming Pool Installer: Juan Paredes DCPIA - Discharge Planning Initial Assessment Updated by [id number]: Juan Paredes on 11/08/18 9:49 am * Is the patient Alert and Oriented? Yes * How many steps to enter\exit or inside your home? * [facility] * Pharmacy [facility] * Preadmission Environment Home with Family * ADLs Independent * Equipment CPAP Oxygen * Other Equipment HOME OXYGEN FROM [facility] [place] IN [place] * List name and contact numbers for known caregivers / representatives who currently or will assist patient after discharge: GOKUL DA SILVA, SPOUSE, * Verbal permission to speak to the caregivers and representatives has been obtained from the patient. N/A * Community resources currently utilized Other * Please name any agencies selected above. OUTPATIENT DIALYSIS, [facility] - [facility], 1530 HOURS, PT DRIVES SELF * Additional services required to return to the preadmission environment? Yes * Can the patient safely return to the preadmission environment? Yes * Has this patient been hospitalized within the prior 30 days at any hospital? No Coverage Notice Reviewer: [id number] - Juan Paredes Notice Issued Date-Time: 11/08/2018 9:25 Notice Type: Patient Choice Letter Notice Delivered To: Patient Relationship to Patient: Oracle Hrms Developer Name: Delivery Method: HAND - Hand Delivered Valerie Days: Prior Verbal Notification: Recipient Understood Notice: Yes Recipient Signature: Yes Med Rec Note Co-signed by Attending: Coverage Notice Comment: 1- [facility], 2- NO PREFERENCE Last DP export: 11/13/18 1:15 p Patient Name: CAYDEN DA SILVA Page [id number] at 1640 All edits/amendments must be made on the electronic document DICTATION DATE: 11/13/181645 SQL REPORT DEVELOPER: DM 11/13/181645 RPT#: [id number] DC DATE: STATUS: ADM IN [facility] [address] [place] [address] END OF REPORT
--- NOTE | 2018-11-13 19:15 | NUR ---
PATIENT LAYING IN BED. NO COMPLAINTS AT THIS TIME. NO DISTRESS NOTED.
[2018-11-13 20:00] VITALS: BP 133/59
[2018-11-14 00:02] VITALS: BP 137/62
--- NOTE | 2018-11-14 01:12 | NUR ---
PATIENT LAYING IN BED. EYES CLOSED, CHEST RISING AND FALLING. NO DISTRESS NOTED.
[2018-11-14 04:00] VITALS: BP 153/83
[2018-11-14 05:51] LABS: BASOPHILS 0.8 % (0-2); EOSINOPHILS 5.4 % (0-7); HEMATOCRIT 31.8 % (42.0-54.0); HEMOGLOBIN 10.6 g/dL (13.5-17.5); IMMATURE GRANULOCYTES 0.8 % (0-5); LYMPHOCYTES 29.2 % (15-50); MCH 31.3 pg (26.0-34.0); MCHC 33.3 g/dL (31.0-37.0); MCV 93.8 fL (80.0-100.0); MEAN PLATELET VOLUME 9.9 fL (7.4-10.4); MONOCYTES 8.5 % (2-11); NEUTROPHILS 55.3 % (40-80); PLATELET COUNT 197 10x3/uL (130-400); RBC 3.39 10x6/uL (4.20-6.10); WBC 10.8 10x3/uL (4.8-10.8)
[2018-11-14 06:06] LABS: INR 1.47 (0.85-1.17); PROTIME 17.3 SECONDS (11.6-15.0)
[2018-11-14 06:07] LABS: ALBUMIN 3.7 g/dL (3.4-5.0); ANION GAP 14.9 mmol/L (8-16); BILIRUBIN - TOTAL 0.65 mg/dL (0.2-1.3); CALCIUM 10.6 mg/dL (8.5-10.1); CARBON DIOXIDE 31.4 mmol/L (21.0-32.0); CREATININE - SERUM 8.1 mg/dL (0.6-1.3); PHOSPHOROUS 4.9 mg/dL (2.5-4.9); POTASSIUM - SERUM 3.3 mmol/L (3.5-5.1); PROTEIN - SERUM 8.4 g/dL (6.4-8.2); VANCOMYCIN - RANDOM 20.4 ug/mL (10.0-20.0)
--- NOTE | 2018-11-14 08:09 | MORECARE ---
CASE MANAGEMENT DISCHARGE SUMMARY PATIENT: CAYDEN DA SILVA UNIT: [id number] ADM DATE: 11/07/18 AGE: 57 : 60 SEX: M ROOM/BED: D.2101 AUTHOR: DAHLIA,DOC PHYSICIAN: REFERRING PHYSICIAN: LEE RAMOS MD DATE OF SERVICE: 11/14/18 Discharge Plan Patient Name: CAYDEN DA SILVA Facility: [facility]:[place] : 1960 Planned Disposition: Broker Associate Acute Care Facility Anticipated Discharge Date: 11/13/18 Discharge Date: Expected LOS: 6 Initial Reviewer: [id number] Initial Review Date: 11/08/2018 Generated: 11/14/18 9:09 am Comments DCP- Discharge Planning Updated by [email or web address]: Juan Paredes on 11/14/18 7:[address] Patient Name: CAYDEN DA SILVA Encounter No: [id number] : 1960 Primary Insurance: AETNA PPO Anticipated DC Date: 11-13-2018 Planned Disposition: Broker Associate Acute Care Facility External Planned Provider:MYLA ANGULO [place] DCP follow-up note: CM RECEIVED CALL FROM GRACE BLOCK, MACHINE SILVER STRIPPER OF [facility], , MYLA ANGULO HAS SUBMITTED TO COUNT INCLUDES THE [facility] THIS MORNING FOR AUTHORIZATION AND WILL COME TO ASSESS PT IN ROOM LATER THIS MORNING. CM WAITING ADMISSION DETERMINATION AND INSURANCE AUTHORIZATION FOR GROUP HOME [facility]UTE [facility] SERVICES AT [facility]. LETICIA Ward DCP- Discharge Planning Updated by [id number]: Juan Paredes on 11/13/18 3:[address] Patient Name: CAYDEN DA SILVA Encounter No: [id number] : 1960 Primary Insurance: AETNA PPO Anticipated DC Date: 11-13-2018 Planned Disposition: [facility] Acute Care Facility External Planned Provider: :[facility]LA ANGULO [place] DCP follow-up note: CM SPOKE TO DR. RAMOS AND RECEIVED LTACH ORDER. DR. RAMOS INFORMED CM THAT HE DOES NOT THINK THAT PT WILL HEAL WELL AT HOME AND WOULD LIKE PLACMENT FOR WOUND CARE TO PREVENT REHOSPITALIZATION. CM CALLED [facility]LA ANGULO [facility], , SPOKE TO ANTONIETA WHO INFORMED CM THAT COMMERCIAL INSURANCE DOES NOT REQUIRE THREE MIDNIGHTS IN ICU AND THEY WOULD CONTACT PT'S INSURANCE COMPANY IN ATTEPT TO SECURE AUTHORZATION FOR LTACH SERVICES. CM FAXED REFERRAL TO [facility], . CM WAITING ADMISSION DETERMINATION AND INSURANCE AUTHORIZATION FOR GROUP HOME [facility] SERVICES AT [facility]. Juan Paredes, CASE MANAGEMENT Appended by Juan Paredes on 11/13/2018 16:42 CDT: CM SPOKE TO PT IN ROOM, DISCUSSED LTACH EVALUATION AND LOCATION IN [place]. PT IN AGREEMENT WITH PLAN. CM WAITING ADMISSION DETERMINATION AND INSURANCE AUTHORIZATION FOR GROUP HOME [facility] SERVICES AT [facility]. Juan Paredes, CASE MANAGEMENT DCP- Discharge Planning Updated by [id number]: Juan Paredes on 11/10/18 11:[address] Patient Name: CAYDEN DA SILVA Encounter No: [id number] : 1960 Primary Insurance: AETNA PPO Anticipated DC Date: Planned Disposition: Home with Home Health External Planned Provider:[facility] Discharge Planning Comments: CM SPOKE TO PT IN ROOM, HE WILL NOT PAY THE $46 COPAY FOR HOME WOUND VAC. PT STATES HE WILL NOT GO HOME WITH A HOME VAC. CM CALLED JUAN JOSE OF [facility], CANCELLED WOUND VAC ORDER. CM NOTIFIED [facility] WHO ADVISED THEY HAVE PT ON SCHEDULE FOR TUESDAY ADMIT AND WILL NEED TO KNOW SPECIFIC WOUND CARE ORDERS TO MAKE SURE THEY CAN MEET PT'S HOME NEEDS. FOR DISCHARGE, [facility] NEEDS SPECIFIC WOUND CARE ORDERS SINCE PT HAS REFUSED HOME WOUND VAC. NOTIFY [facility] OF DISCHARGE AT [phone] TO ENSURE ACCEPTANCE. FAX DISCHARGE INFORMATION TO [facility] AT [phone], Compound Specialist: Juan Paredes DCP- Discharge Planning Updated by [id number]: Juan Paredes on 11/09/18 10:[address] Patient Name: CAYDEN DA SILVA Encounter No: [id number] : 1960 Primary Insurance: AETNA PPO Anticipated DC Date: Planned Disposition: Home with Home Health External Planned Provider: Home with Home Health Primary Insurance: AETNA PPO PLANNED EXTERNAL PROVIDER: [facility] Discharge Planning Comments: CM RECEIVED CALL FROM [facility], , SPOKE TO JUAN JOSE, PT HAS COPAY OF $46 PER DAY FOR WOUND VAC, NO UPFRONT COSTS AND THE COPAY WOULD BE BILLED TO PT FOR PAYMENT. CM NOTIFED PT IN ROOM. PT IS NOT SURE IF HE WANTS HOME WOUND VAC. CM EXPLAINED ALTERNATIVE OF TRADITIONAL DRESSING CHANGES THAT MAY BE MORE FREQUENT AND THAT MAY REQUIRE A LONGER HEALING TIME. PT STATES HE WILL THINK ABOUT IT AND LET CM KNOW HIS DECISION SOON HE MAKES IT. CM WAITING FOR PT TO DECIDE IF HE CAN / WILL PAY THE $46 COPAY FOR HOME WOUND VAC. [facility] WILL COMPLETE PROCESSING IF PT IS IN AGREEMENT. . FOR DISCHARGE FAX DISCHARGE INFORMATION TO C[facility] AT [phone], NOTIFY [facility] OF DISCHARGE AT [phone]. Compound Specialist: Juan Paredes DCP- Discharge Planning Updated by [id number]: Juan Paredes on 11/08/18 3:[address] Patient Name: CAYDEN DA SILVA Admission Status: Elective Accout number: [id number] Admission Date: 11-07-2018 : 1960 Admission Diagnosis: Attending: LEE RAMOS Current LOS: 1 Anticipated DC Date: Planned Disposition: Home with Home Health Primary Insurance: AETNA PPO PLANNED EXTERNAL PROVIDER: [facility] Discharge Planning Comments: CM RECEIVED ORDER FOR HOME HEALTH AND HOME WOUND VAC. CM MET WITH PT IN ROOM TO DISCUSS DISCHARGE PLANNING AND NEEDS. PT REPORTS LIVING AT HOME INDEPENDENTLY WITH HIS . 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 PT HAS CPAP AND HOME OXYGEN FROM [facility] IN [place] ON [address]. PT HAS NO OUTSIDE SERVICES ASSISTING IN THE HOME. CM DISCUSSED AVAILABILITY OF HOME HEALTH, REHAB SERVICES AND MEDICAL EQUIPMENT. PT WOULD LIKE HOME HEALTH WITH [facility] AND NO PREFERENCE ON WOUND VAC PROVIDER. CHOICE SIGNED. PT GOES TO DIALYSIS IN [place] ON [address] ON MWF, 1530 HOURS SCHEDULE AND HAS BEEN DRIVING HIMSELF TO DIALYSIS AFTER GETTING OFF FROM WORK. PT REPORTS HIS WILL PICK HIM UP FOR DISCHARGE HOME. CM CALLED [facility], , SPOKE TO DESMOND AND PROVIDED REFERRAL INFORMATION, FAXED REFERRAL TO [facility] AT [phone]. CM CALLED [facility], , SPOKE TO JUAN JOSE, PROVIDED REFERRAL INFORMATION AND FAXED REFERRAL FOR WOUND VAC TO [facility] AT [phone]. [facility] WILL BEGIN WORKING ON INSURANCE APPROVAL FOR WOUND VAC AND WILL NEED WOUND MEASUREMENTS SOON THE ARE AVAILABLE. CM TO FAX WOUND MEASUREMENTS TO [facility] AT [phone], WHEN DOCUMENTED, FOR COMPLETION OF WOUND VAC ARRANGEMENT. FOR DISCHARGE, CM WILL REQUIRE DETAILED HOME HEALTH ORDER, FAX TO [facility] AT [phone], NOTIFY [facility] OF DISCHARGE AT [phone]. Compound Specialist: Juan Paredes Appended by Juan Paredes on 11/08/2018 14:58 CDT: CM FAXED WOUND MEASUREMENTS TO [facility] AT [phone]. CM WAITING APPROVAL FOR WOUND VAC. FOR DISCHARGE FAX DISCHARGE INFORMATION TO [facility] AT [phone], NOTIFY [facility] OF DISCHARGE AT [phone]. Compound Specialist: Juan Paredes Appended by Juan Paredes on 11/08/2018 16:51 CDT: CM OBTAINED DR. WORLEY'S SIGNAURE ON PRESCRIPTION FOR HOME WOUND VAC, FAXED SIGNED PRESCRIPTION FOR HOME WOUND VAC TO [facility] AT [phone]. CM WAITING APPROVAL FOR HOME WOUND VAC. FOR DISCHARGE FAX DISCHARGE INFORMATION TO [facility] AT [phone], NOTIFY [facility] OF DISCHARGE AT [phone]. Compound Specialist: Juan Paredes DCPIA - Discharge Planning Initial Assessment Updated by [id number]: Juan Paredes on 11/08/18 9:49 am * Is the patient Alert and Oriented? Yes * How many steps to enter\exit or inside your home? * PCP [facility] [place] [address] * [facility]acy [facility] * Preadmission Environment Home with Family * ADLs Independent * Equipment CPAP Oxygen * Other Equipment HOME OXYGEN FROM [facility] IN [place] [address] * List name and contact numbers for known caregivers / representatives who currently or will assist patient after discharge: GOKUL DA SILVA, SPOUSE, * Verbal permission to speak to the caregivers and representatives has been obtained from the patient. N/A * Community resources currently utilized Other * Please name any agencies selected above. OUTPATIENT DIALYSIS, [facility] - [facility], 1530 HOURS, PT DRIVES SELF * Additional services required to return to the preadmission environment? Yes * Can the patient safely return to the preadmission environment? Yes * Has this patient been hospitalized within the prior 30 days at any hospital? No Coverage Notice Reviewer: [id number] Jarrett Paredes Notice Issued Date-Time: 11/08/2018 9:25 Notice Type: Patient Choice Letter Notice Delivered To: Patient Relationship to Patient: Ferruler Name: Delivery Method: HAND - Hand Delivered Valerie Days: Prior Verbal Notification: Recipient Understood Notice: Yes Recipient Signature: Yes Med Rec Note Co-signed by Attending: Coverage Notice Comment: 1- [facility], 2- NO PREFERENCE Last DP export: 11/13/18 3:47 p Patient Name: CAYDEN DA SILVA Page [id number] at 0809 All edits/amendments must be made on the electronic document DICTATION DATE: 11/14/18808 INFRASTRUCTURE DESIGN ENGINEER: RAMA 11/14/18808 RPT#: [id number] DC DATE: STATUS: ADM IN [facility] [address] [place] [address] END OF REPORT
[2018-11-14 09:18] VITALS: BP 119/76
--- NOTE | 2018-11-14 11:08 | NUR ---
PATIENT IS SITTING UP IN BED, WATCHING TV AT THIS TIME. PATIENT DENIES ANY NEEDS.
--- NOTE | 2018-11-14 13:11 | NUR ---
Nutrition follow-up: Diet: Renal ADA PO itnake 86% average of last 9 meals labs reviewed Wt: 317# +BM RDN following.
--- NOTE | 2018-11-14 14:43 | MORECARE ---
CASE MANAGEMENT DISCHARGE SUMMARY PATIENT: CAYDEN DA SILVA UNIT: [id number] ADM DATE: 11/07/18 AGE: 57 : 60 SEX: M ROOM/BED: D.2102 AUTHOR: DAHLIA,DOC PHYSICIAN: REFERRING PHYSICIAN: LEE RAMOS MD DATE OF SERVICE: 11/14/18 Discharge Plan Patient Name: CAYDEN DA SILVA Facility: [facility]:[place] : 1960 Planned Disposition: [facility] Anticipated Discharge Date: 11/14/18 Discharge Date: Expected LOS: 7 Initial Reviewer: [id number] Initial Review Date: 11/08/2018 Generated: 11/14/18 3:43 pm Comments DCP- Discharge Planning Updated by PALOMO: Juan Paredes on 11/14/18 1:[address] Patient Name: CAYDEN DA SILVA Encounter No: [id number] : 1960 Primary Insurance: T PPO Anticipated DC Date: 11-13-2018 Planned Disposition: [facility] External Planned Provider:MYLA ANGULO [place] DCP follow-up note: CM RECEIVED CALL FROM GRACE BLOCK, SPECIAL EDUCATION RESOURCE ROOM TEACHER OF [facility], , MYLA ANGULO HAS SUBMITTED TO [facility] THIS MORNING FOR AUTHORIZATION AND WILL COME TO ASSESS PT IN ROOM LATER THIS MORNING. CM WAITING ADMISSION DETERMINATION AND INSURANCE AUTHORIZATION FOR [facility] AT [facility]. Juan Paredes, CASE MANAGEMENT Appended by Juan Paredes on 11/14/2018 14:40 CDT: CM RECEIVED CALL FROM OTTO OF [facility], , INSURANCE HAS APPROVED [facility] OTTO WILL MEET WITH PT SHORTLY. CM NOTIFIED RENAL GALINA LIANG WHO ASKED THAT BEDSIDE NURSE CALL HER FOR DISCHARGE ORDERS; REFRIGERATOR ROOM CLERK WILL CHECK WITH DR. OSEGUERA TO SEE IF HE WILL BE THE ADMITTING DOCTOR. BEDSIDE NURSE NOTIFIED. PT AND SPOUSE NOTIFIED, BOTH IN AGREEMENT WITH DISCHARGE TO [facility] IN [place]. FOR DISCHARGE TO [facility], FAX DISCHARGE INFORMATION TO MYLA ANGULO [phone]. NURSE REPORT TO BE CALLED TO MYLA ADELE AT [phone]. PT TO TRANSPORT VIA AMBULANCE. LETICIA HART DCP- Discharge Planning Updated by [id number]: Jaun Paredes on 11/13/18 3:[address] Patient Name: CAYDEN DA SILVA Encounter No: [id number] : 1960 Primary Insurance: AETNA PPO Anticipated DC Date: 11-13-2018 Planned Disposition: [facility] External [facility] follow-up note: CM SPOKE TO DR. RAMOS AND RECEIVED LTACH ORDER. DR. RAMOS INFORMED CM THAT HE DOES NOT THINK THAT PT WILL HEAL WELL AT HOME AND WOULD LIKE PLACMENT FOR WOUND CARE TO PREVENT REHOSPITALIZATION. CM CALLED [facility], , SPOKE TO ANTONIETA WHO INFORMED CM THAT COMMERCIAL INSURANCE DOES NOT REQUIRE THREE MIDNIGHTS IN ICU AND THEY WOULD CONTACT PT'S INSURANCE COMPANY IN ATTEPT TO SECURE AUTHORZATION FOR LTACH SERVICES. CM FAXED REFERRAL TO OLIVIA ADELE, . CM WAITING ADMISSION DETERMINATION AND INSURANCE AUTHORIZATION FOR [facility]. LETICIA Hart MANAGEMENT Appended by Juan Paredes on 11/13/2018 16:42 CDT: CM SPOKE TO PT IN ROOM, DISCUSSED LTACH EVALUATION AND LOCATION IN [place]. PT IN AGREEMENT WITH PLAN. CM WAITING ADMISSION DETERMINATION AND INSURANCE AUTHORIZATION FOR [facility]. LETICIA Hart DCP- Discharge Planning Updated by [id number]: Juan Paredes on 11/10/18 11:[address] Patient Name: CAYDEN DA SILVA Encounter No: [id number] : 1960 Primary Insurance: AETNA PPO Anticipated DC Date: Planned Disposition: Home with Home Health External Planned Provider:[facility] Discharge Planning Comments: CM SPOKE TO PT IN ROOM, HE WILL NOT PAY THE $46 COPAY FOR HOME WOUND VAC. PT STATES HE WILL NOT GO HOME WITH A HOME VAC. CM CALLED JUAN JOSE OF [facility], CANCELLED WOUND VAC ORDER. CM NOTIFIED [facility] WHO ADVISED THEY HAVE PT ON SCHEDULE FOR TUESDAY ADMIT AND WILL NEED TO KNOW SPECIFIC WOUND CARE ORDERS TO MAKE SURE THEY CAN MEET PT'S HOME NEEDS. FOR DISCHARGE, [facility] NEEDS SPECIFIC WOUND CARE ORDERS SINCE PT HAS REFUSED HOME WOUND VAC. NOTIFY [facility] OF DISCHARGE AT [phone] TO ENSURE ACCEPTANCE. FAX DISCHARGE INFORMATION TO [facility] AT [phone], Metrology Technician: Juan Paredes DCP- Discharge Planning Updated by [id number]: Juan Paredes on 11/09/18 10:[address] Patient Name: CAYDEN DA SILVA Encounter No: [id number] : 1960 Primary Insurance: AETNA PPO Anticipated DC Date: Planned Disposition: Home with Home Health External Planned Provider: Home with Home Health Primary Insurance: AETNA PPO PLANNED EXTERNAL PROVIDER: [facility] Discharge Planning Comments: CM RECEIVED CALL FROM [facility], , SPOKE TO JUAN JOSE, PT HAS COPAY OF $46 PER DAY FOR WOUND VAC, NO UPFRONT COSTS AND THE COPAY WOULD BE BILLED TO PT FOR PAYMENT. CM NOTIFED PT IN ROOM. PT IS NOT SURE IF HE WANTS HOME WOUND VAC. CM EXPLAINED ALTERNATIVE OF TRADITIONAL DRESSING CHANGES THAT MAY BE MORE FREQUENT AND THAT MAY REQUIRE A LONGER HEALING TIME. PT STATES HE WILL THINK ABOUT IT AND LET CM KNOW HIS DECISION SOON HE MAKES IT. CM WAITING FOR PT TO DECIDE IF HE CAN / WILL PAY THE $46 COPAY FOR HOME WOUND VAC. [facility] WILL COMPLETE PROCESSING IF PT IS IN AGREEMENT. . FOR DISCHARGE FAX DISCHARGE INFORMATION TO [facility] AT [phone], NOTIFY [facility] OF DISCHARGE AT [phone]. Metrology Technician: Juan Paredes DCP- Discharge Planning Updated by [id number]: Juan Paredes on 11/08/18 3:[address] Patient Name: CAYDEN DA SILVA Admission Status: Elective Accout number: [id number] Admission Date: 11-07-2018 : 1960 Admission Diagnosis: Attending: LEE RAMOS Current LOS: 1 Anticipated DC Date: Planned Disposition: Home with Home Health Primary Insurance: AETNA PPO PLANNED EXTERNAL PROVIDER: [facility] Discharge Planning Comments: CM RECEIVED ORDER FOR HOME HEALTH AND HOME WOUND VAC. CM MET WITH PT IN ROOM TO DISCUSS DISCHARGE PLANNING AND NEEDS. PT REPORTS LIVING AT HOME INDEPENDENTLY WITH HIS . 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 PT HAS CPAP AND HOME OXYGEN FROM [facility] IN [place]. PT HAS NO OUTSIDE SERVICES ASSISTING IN THE HOME. CM DISCUSSED AVAILABILITY OF HOME HEALTH, REHAB SERVICES AND MEDICAL EQUIPMENT. PT WOULD LIKE HOME HEALTH WITH [facility] AND NO PREFERENCE ON WOUND VAC PROVIDER. CHOICE SIGNED. PT GOES TO DIALYSIS IN [place] ON MWF, 1530 HOURS SCHEDULE AND HAS BEEN DRIVING HIMSELF TO DIALYSIS AFTER GETTING OFF FROM WORK. PT REPORTS HIS WILL PICK HIM UP FOR DISCHARGE HOME. CM CALLED [facility], , SPOKE TO DESMOND AND PROVIDED REFERRAL INFORMATION, FAXED REFERRAL TO [facility] AT [phone]. CM CALLED [facility], , SPOKE TO JUAN JOSE, PROVIDED REFERRAL INFORMATION AND FAXED REFERRAL FOR WOUND VAC TO [facility] AT [phone]. [facility] WILL BEGIN WORKING ON INSURANCE APPROVAL FOR WOUND VAC AND WILL NEED WOUND MEASUREMENTS SOON THE ARE AVAILABLE. CM TO FAX WOUND MEASUREMENTS TO [facility] AT [phone], WHEN DOCUMENTED, FOR COMPLETION OF WOUND VAC ARRANGEMENT. FOR DISCHARGE, CM WILL REQUIRE DETAILED HOME HEALTH ORDER, FAX TO [facility] AT [phone], NOTIFY [facility] OF DISCHARGE AT [phone]. Metrology Technician: Juan Paredes Appended by Juan Paredes on 11/08/2018 14:58 CDT: CM FAXED WOUND MEASUREMENTS TO [facility] AT [phone]. CM WAITING APPROVAL FOR WOUND VAC. FOR DISCHARGE FAX DISCHARGE INFORMATION TO [facility] AT [phone], NOTIFY [facility] OF DISCHARGE AT [phone]. Metrology Technician: Juan Paredes Appended by Juan Paredes on 11/08/2018 16:51 CDT: CM OBTAINED DR. WORLEY'S SIGNAURE ON PRESCRIPTION FOR HOME WOUND VAC, FAXED SIGNED PRESCRIPTION FOR HOME WOUND VAC TO [facility] AT [phone]. CM WAITING APPROVAL FOR HOME WOUND VAC. FOR DISCHARGE FAX DISCHARGE INFORMATION TO [facility] AT [phone], NOTIFY [facility] OF DISCHARGE AT [phone]. Metrology Technician: Juan Paredes DCPIA - Discharge Planning Initial Assessment Updated by [id number]: Juan Paredes on 11/08/18 9:49 am * Is the patient Alert and Oriented? Yes * How many steps to enter\exit or inside your home? * [facility] * Pharmacy [facility] * Preadmission Environment Home with Family * ADLs Independent * Equipment CPAP Oxygen * Other Equipment HOME OXYGEN FROM [facility] IN [place] * List name and contact numbers for known caregivers / representatives who currently or will assist patient after discharge: GOKUL DA SILVA, SPOUSE, * Verbal permission to speak to the caregivers and representatives has been obtained from the patient. N/A * Community resources currently utilized Other * Please name any agencies selected above. OUTPATIENT DIALYSIS, [facility], 1530 HOURS, PT DRIVES SELF * Additional services required to return to the preadmission environment? Yes * Can the patient safely return to the preadmission environment? Yes * Has this patient been hospitalized within the prior 30 days at any hospital? No Coverage Notice Reviewer: [id number] - Juan Paredes Notice Issued Date-Time: 11/08/2018 9:25 Notice Type: Patient Choice Letter Notice Delivered To: Patient Relationship to Patient: Basin Operator Name: Delivery Method: HAND - Hand Delivered Valerie Days: Prior Verbal Notification: Recipient Understood Notice: Yes Recipient Signature: Yes Med Rec Note Co-signed by Attending: Coverage Notice Comment: 1- [facility], 2- NO PREFERENCE Last DP export: 11/14/18 7:09 a Patient Name: CAYDEN DA SILVA Page [id number] at 1443 All edits/amendments must be made on the electronic document DICTATION DATE: 11/14/18 144 HOSPITAL CARRIER: RAMA 11/14/18 1442 RPT#: [id number] DC DATE: STATUS: ADM IN [facility] [address] [place] [address] END OF REPORT
[2018-11-14] MEDS ORDERED: ACETAMINOPHEN325 MG PO (14:57)
[2018-11-14] MEDS ORDERED: DIFLUCAN200 MG PO (14:57)
[2018-11-14] MEDS ORDERED: LOVENOX80 MG/0.8 SC (14:57)
[2018-11-14] MEDS ORDERED: NEPHRO-VITE RX1 TAB PO (14:58)
[2018-11-14] MEDS ORDERED: FLORAJEN3 CAPS460 MG PO (14:58)
[2018-11-14] MEDS ORDERED: ULTRAM50 MG PO (14:58)
--- NOTE | 2018-11-14 15:57 | MORECARE ---
CASE MANAGEMENT DISCHARGE SUMMARY PATIENT: CAYDEN DA SILVA UNIT: [id number] ADM DATE: 11/07/18 AGE: 57 : 60 SEX: M ROOM/BED: D.2104 AUTHOR: DAHLIA,DOC PHYSICIAN: REFERRING PHYSICIAN: LEE RAMOS MD DATE OF SERVICE: 11/14/18 Discharge Plan Patient Name: CAYDEN DA SILVA Facility: [facility]:[place] : 1960 Planned Disposition: [facility] Care Facility Anticipated Discharge Date: 11/14/18 Discharge Date: Expected LOS: 7 Initial Reviewer: [id number] Initial Review Date: 11/08/2018 Generated: 11/14/18 4:56 pm Comments DCP- Discharge Planning Updated by [id number]: Juan Paredes on 11/14/18 2:[address] Patient Name: CAYDEN DA SILVA Encounter No: [id number] : 1960 Primary Insurance: T PPO Anticipated DC Date: 11-13-2018 Planned Disposition: [facility] Facility External Planned Provider:MYLA ANGULO [place] DCP follow-up note: CM RECEIVED CALL FROM GRACE BLOCK, ROAD FREIGHT CONDUCTOR OF [facility], , MYLA ANGULO HAS SUBMITTED TO [facility] THIS MORNING FOR AUTHORIZATION AND WILL COME TO ASSESS PT IN ROOM LATER THIS MORNING. CM WAITING ADMISSION DETERMINATION AND INSURANCE AUTHORIZATION FOR [facility] SERVICES AT [facility]. Juan Paredes, CASE MANAGEMENT Appended by Juna Paredes on 11/14/2018 14:40 CDT: CM RECEIVED CALL FROM OTTO OF [facility], , INSURANCE HAS APPR[facility]ED [facility] OTTO WILL MEET WITH PT SHORTLY. CM NOTIFIED RENAL GALINA LIANG WHO ASKED THAT BEDSIDE NURSE CALL HER FOR DISCHARGE ORDERS; WASHCOAT WIPER WILL CHECK WITH DR. OSEGUERA TO SEE IF HE WILL BE THE ADMITTING DOCTOR. BEDSIDE NURSE NOTIFIED. PT AND SPOUSE NOTIFIED, BOTH IN AGREEMENT WITH DISCHARGE TO [facility] IN [place]. FOR DISCHARGE TO [facility], [facility] [phone]. NURSE REPORT TO BE CALLED TO [facility] AT [phone]. PT TO TRANSPORT VIA AMBULANCE. LETICIA HART MANAGEMENT Appended by Juan Paredes on 11/14/2018 15:56 CDT: CM RECEIVED DISCHARGE ORDER, FAXED DISCHARGE INFORMATION TO [facility], . NURSE REPORT TO BE CALLED TO [facility] AT [phone]. PT TO TRANSPORT VIA AMBULANCE. LETICIA HART DCP- Discharge Planning Updated by [id number]: Juan Paredes on 11/13/18 3:[address] Patient Name: CAYDEN DA SILVA Encounter No: [id number] : 1960 Primary Insurance: AETNA PPO Anticipated DC Date: 11-13-2018 Planned Disposition: [facility] Facility External Planned Provider: :MYLA ANGULO [place] DCP follow-up note: CM SPOKE TO DR. RAMOS AND RECEIVED LTACH ORDER. DR. RAMOS INFORMED CM THAT HE DOES NOT THINK THAT PT WILL HEAL WELL AT HOME AND WOULD LIKE PLACMENT FOR WOUND CARE TO PREVENT REHOSPITALIZATION. [facility], , SPOKE TO ANTONIETA WHO INFORMED CM THAT COMMERCIAL INSURANCE DOES NOT REQUIRE THREE MIDNIGHTS IN ICU AND THEY WOULD CONTACT PT'S INSURANCE COMPANY IN ATTEPT TO SECURE AUTHORZATION FOR LTACH SERVICES. CM FAXED REFERRAL TO [facility], . CM WAITING ADMISSION DETERMINATION AND INSURANCE AUTHORIZATION FOR [facility] AT [facility]. LETICIA Hart MANAGEMENT Appended by Juan Paredes on 11/13/2018 16:42 CDT: CM SPOKE TO PT IN ROOM, DISCUSSED LTACH EVALUATION AND LOCATION IN [place]. PT IN AGREEMENT WITH PLAN. CM WAITING ADMISSION DETERMINATION AND INSURANCE AUTHORIZATION FOR [facility] AT [facility]. LETICIA Hart DCP- Discharge Planning Updated by [id number]: Juan Paredes on 11/10/18 11:[address] Patient Name: CAYDEN DA SILVA Encounter No: [id number] : 1960 Primary Insurance: AETNA PPO Anticipated DC Date: Planned Disposition: Home with Home Health External Planned Provider:[facility] Discharge Planning Comments: CM SPOKE TO PT IN ROOM, HE WILL NOT PAY THE $46 COPAY FOR HOME WOUND VAC. PT STATES HE WILL NOT GO HOME WITH A HOME VAC. CM CALLED JUAN JOSE OF [facility], CANCELLED WOUND VAC ORDER. CM NOTIFIED [facility] WHO ADVISED THEY HAVE PT ON SCHEDULE FOR TUESDAY ADMIT AND WILL NEED TO KNOW SPECIFIC WOUND CARE ORDERS TO MAKE SURE THEY CAN MEET PT'S HOME NEEDS. FOR DISCHARGE, [facility] NEEDS SPECIFIC WOUND CARE ORDERS SINCE PT HAS REFUSED HOME WOUND VAC. NOTIFY [facility] OF DISCHARGE AT [phone] TO ENSURE ACCEPTANCE. FAX DISCHARGE INFORMATION TO CARE AT [phone], Transmission Line Engineer: Juan Paredes DCP- Discharge Planning Updated by [id number]: Juan Paredes on 11/09/18 10:[address] Patient Name: CAYDEN DA SILVA Encounter No: [id number] : 1960 Primary Insurance: AETNA PPO Anticipated DC Date: Planned Disposition: Home with Home Health External Planned Provider: Home with Home Health Primary Insurance: AETNA PPO PLANNED EXTERNAL PROVIDER: [facility] Discharge Planning Comments: CM RECEIVED CALL FROM [facility], , SPOKE TO JUAN JOSE, PT HAS COPAY OF $46 PER DAY FOR WOUND VAC, NO UPFRONT COSTS AND THE COPAY WOULD BE BILLED TO PT FOR PAYMENT. CM NOTIFED PT IN ROOM. PT IS NOT SURE IF HE WANTS HOME WOUND VAC. CM EXPLAINED ALTERNATIVE OF TRADITIONAL DRESSING CHANGES THAT MAY BE MORE FREQUENT AND THAT MAY REQUIRE A LONGER HEALING TIME. PT STATES HE WILL THINK ABOUT IT AND LET CM KNOW HIS DECISION SOON HE MAKES IT. CM WAITING FOR PT TO DECIDE IF HE CAN / WILL PAY THE $46 COPAY FOR HOME WOUND VAC. [facility] WILL COMPLETE PROCESSING IF PT IS IN AGREEMENT. . FOR DISCHARGE FAX DISCHARGE INFORMATION TO CARE AT [phone], NOTIFY [facility] OF DISCHARGE AT [phone]. Transmission Line Engineer: Juan Paredes DCP- Discharge Planning Updated by [id number]: Juan Paredes on 11/08/18 3:[address] Patient Name: CAYDEN DA SILVA Admission Status: Elective Accout number: [id number] Admission Date: 11-07-2018 : 1960 Admission Diagnosis: Attending: LEE RAMOS Current LOS: 1 Anticipated DC Date: Planned Disposition: Home with Home Health Primary Insurance: AETNA PPO PLANNED EXTERNAL PROVIDER: [facility] Discharge Planning Comments: CM RECEIVED ORDER FOR HOME HEALTH AND HOME WOUND VAC. CM MET WITH PT IN ROOM TO DISCUSS DISCHARGE PLANNING AND NEEDS. PT REPORTS LIVING AT HOME INDEPENDENTLY WITH HIS . 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 PT HAS CPAP AND HOME OXYGEN FROM [facility] IN [place]. PT HAS NO OUTSIDE SERVICES ASSISTING IN THE HOME. CM DISCUSSED AVAILABILITY OF HOME HEALTH, REHAB SERVICES AND MEDICAL EQUIPMENT. PT WOULD LIKE HOME HEALTH WITH [facility] AND NO PREFERENCE ON WOUND VAC PROVIDER. CHOICE SIGNED. PT GOES TO DIALYSIS IN [place] ON MWF, 1530 HOURS SCHEDULE AND HAS BEEN DRIVING HIMSELF TO DIALYSIS AFTER GETTING OFF FROM WORK. PT REPORTS HIS WILL PICK HIM UP FOR DISCHARGE HOME. CM CALLED [facility], , SPOKE TO DESOMND AND PROVIDED REFERRAL INFORMATION, FAXED REFERRAL TO [facility] AT [phone]. CM CALLED [facility], , SPOKE TO JUAN JOSE, PROVIDED REFERRAL INFORMATION AND FAXED REFERRAL FOR WOUND VAC TO [facility] AT [phone]. [facility] WILL BEGIN WORKING ON INSURANCE APPROVAL FOR WOUND VAC AND WILL NEED WOUND MEASUREMENTS SOON THE ARE AVAILABLE. CM TO FAX WOUND MEASUREMENTS TO [facility] AT [phone], WHEN DOCUMENTED, FOR COMPLETION OF WOUND VAC ARRANGEMENT. FOR DISCHARGE, CM WILL REQUIRE DETAILED HOME HEALTH ORDER, FAX TO [facility] AT [phone], NOTIFY [facility] OF DISCHARGE AT [phone]. Transmission Line Engineer: Juan Paredes Appended by Juan Paredes on 11/08/2018 14:58 CDT: CM FAXED WOUND MEASUREMENTS TO [facility] AT [phone]. CM WAITING APPROVAL FOR WOUND VAC. FOR DISCHARGE FAX DISCHARGE INFORMATION TO [facility] AT [phone], NOTIFY [facility] OF DISCHARGE AT [phone]. Transmission Line Engineer: Juan Paredes Appended by Juan Paredes on 11/08/2018 16:51 CDT: CM OBTAINED DR. WORLEY'S SIGNAURE ON PRESCRIPTION FOR HOME WOUND VAC, FAXED SIGNED PRESCRIPTION FOR HOME WOUND VAC TO [facility] AT [phone]. CM WAITING APPROVAL FOR HOME WOUND VAC. FOR DISCHARGE FAX DISCHARGE INFORMATION TO [facility] AT [phone], NOTIFY [facility] OF DISCHARGE AT [phone]. Transmission Line Engineer: Juan Paredes DCPIA - Discharge Planning Initial Assessment Updated by [id number]: Juan Paredes on 11/08/18 9:49 am * Is the patient Alert and Oriented? Yes * How many steps to enter\exit or inside your home? * PCP DR. REICH, [place] * Pharmacy [facility] * Preadmission Environment Home with Family * ADLs Independent * Equipment CPAP Oxygen * Other Equipment HOME OXYGEN FROM [facility] IN [place] * List name and contact numbers for known caregivers / representatives who currently or will assist patient after discharge: GOKUL DA SILVA, SPOUSE, * Verbal permission to speak to the caregivers and representatives has been obtained from the patient. N/A * Community resources currently utilized Other * Please name any agencies selected above. OUTPATIENT DIALYSIS, [facility], 1530 HOURS, PT DRIVES SELF * Additional services required to return to the preadmission environment? Yes * Can the patient safely return to the preadmission environment? Yes * Has this patient been hospitalized within the prior 30 days at any hospital? No Coverage Notice Reviewer: [id number] - Juan Paredes Notice Issued Date-Time: 11/08/2018 9:25 Notice Type: Patient Choice Letter Notice Delivered To: Patient Relationship to Patient: Door Glass Installer Name: Delivery Method: HAND - Hand Delivered Valerie Days: Prior Verbal Notification: Recipient Understood Notice: Yes Recipient Signature: Yes Med Rec Note Co-signed by Attending: Coverage Notice Comment: 1- [facility], 2- NO PREFERENCE Last DP export: 11/14/18 1:43 p Patient Name: CAYDEN DA SILVA Page [id number] at 3804 All edits/amendments must be made on the electronic document DICTATION DATE: 11/14/181555 MECHANICAL ENGINEERING PROFESSOR: RAMA 11/14/181555 RPT#: [id number] [place] DATE: STATUS: ADM IN [facility] [address] [place] [address] END OF REPORT
--- NOTE | 2018-11-14 16:45 | NUR ---
PATIENT IS BEING DISCHARGED. IV IS BEING LEFT IN HIS RIGHT WRIST PER REQUEST OF RN BY THE NAME OF SEPTEMBER THAT THE PATIENT IS BEING TRANSFERED TO IN [place] AT [facility] ROOM 313. DISCHARGE PAPERS ARE IN PROCESS AND PATIENT WILL BE GOING BY AMBULANCE. HE HAS GATHERED ALL HIS PERSONAL BELONGINGS.
[2018-11-14 18:07] LABS: SPE - A/G RATIO 0.9 (0.7-1.7); SPE - ALBUMIN 3.6 g/dL (2.9-4.4); SPE - ALPHA-1 GLOBULIN 0.3 g/dL (0.0-0.4); SPE - ALPHA-2 GLOBULIN 0.8 g/dL (0.4-1.0); SPE - BETA GLOBULIN 1.3 g/dL (0.7-1.3); SPE - GAMMA GLOBULIN 1.6 g/dL (0.4-1.8); SPE - M-SPIKE Not Observed g/dL (Not Observed); SPE - TOTAL PROTEIN 7.5 g/dL (6.0-8.5)
--- NOTE | 2018-11-14 18:34 | NUR ---
PATIENT IS AWAITING TRANSFER BY EMS. CALLED THE AMBULANCE AND THEY SAID IT WOULD BE ABOUT AN HOUR WAIT. PATIENT HAS SIGNED ALL DISCHARGE PAPERS AND DISCHARGE IS COMPLETED. IV WILL BE LEFT IN FOR TRANSFER AND HAS BEEN REPORTED. PATIENT HAS COLLECTED ALL HIS BELONGINGS FROM THE ROOM. WOUND VAC HAS BEEN REMOVED AND PLACED IN THE DIRTY EQUIPMENT ROOM. THERE IS A DRAIN STILL EXTENDED FROM THE PATIENTS ABDOMEN AND A CLEAR DRESSING IS OVER THE SITE. THERE IS A CLEAN GLOVE TAPED TO THE END OF THE TUBE. THIS WAS THE ORDER OF OUR WOUND CARE NURSE. PATIENT IS AWARE AND ALERT AND DENIES ANY DISCOMFORT AT THIS TIME.
[2018-11-14 18:42] VITALS: BP 129/78
[2018-11-14 18:51] VITALS: BP 128/74
--- NOTE | 2018-11-14 20:42 | NUR ---
[facility] HERE FOR TRANSPORT, PATIENT DISCHARGED VIA STRECHER WITH [facility] FOR TRANSPORT TO [facility]. BELONGINGS SENT WITH PATIENT. WOUND VAC DRAIN REMAINS INTACT TO ABD. NO COMPLIANTS VOICED. NO DISTRESS NOTED.
== END 2018-11-14 20:46 | disposition short-term general hospital (02) | DRG 907 ==
LOC: D.OPS 07:40 → D.M2 13:43 → D.OPS 13:44 → D.M2 13:45
PROVIDERS: Surgery; ADMIT Internal Medicine Nephrology; ATTEND Internal Medicine Nephrology
PROC: 0WPG03Z Removal of Infusion Device from Peritoneal Cavity, Open Approach (ICD-10-PCS; 2018-11-07)
PROC: 0JD80ZZ Extraction of Abdomen Subcutaneous Tissue and Fascia, Open Approach (ICD-10-PCS; principal; 2018-11-07 10:55)
PROC: 5A1D70Z Performance of Urinary Filtration, Intermittent, Less than 6 Hours Per Day (ICD-10-PCS; 2018-11-08)
DX: T85.71XA Infection and inflammatory reaction due to peritoneal dialysis catheter, initial encounter (principal); N18.6 End stage renal disease; I13.2 Hypertensive heart and chronic kidney disease with heart failure and with stage 5 chronic kidney disease, or end stage renal disease; B37.89 Other sites of candidiasis; Y83.9 Surgical procedure, unspecified as the cause of abnormal reaction of the patient, or of later complication, without mention of misadventure at the time of the procedure; E66.9 Obesity, unspecified; Z68.30 Body mass index [BMI] 30.0-30.9, adult; I50.9 Heart failure, unspecified; I48.91 Unspecified atrial fibrillation; E83.52 Hypercalcemia; G47.33 Obstructive sleep apnea (adult) (pediatric)